=== PATIENT | female | born 1940 | race Caucasian/White ===

== ENCOUNTER 2016-09-08 12:36 | Inpatient (IN) ==
[2016-09-08 13:21] LABS: Basophils % 0.3 % (0.0-0.8); Eosinophils # 0.2 10*3/uL (0.0-0.87); Eosinophils % 1.4 % (0.00-10.9); Hemoglobin 12.6 GM/DL (12.0-16.0); Immature Granulocytes % 0.9 %; Lymphocytes # 2.9 10*3/uL (1.4-4.0); Lymphocytes % 26.7 % (21.3-54.2); Mean Corpuscular HGB Conc 32.3 GM/DL (32-36); Mean Corpuscular Hemoglobin 29 PG (27-34); Mean Corpuscular Volume 90.7 FL (87-102); Mean Platelet Volume 9.7 FL (9.6-12.0); Monocytes # 0.6 10*3/uL (0.11-0.8); Monocytes % 5.7 % (1.7-12.7); Neutrophils # 7.2 10*3/uL (1.4-7.4); Platelet Count 262 T/CUMM (130-400); Red Cell Distribution Width 14.2 % (9.3-17.3)
[2016-09-08] MEDS ORDERED: methylPREDNISolone SOD SUC 125 MG/2 ML VIAL IV STA (13:22)
[2016-09-08] MEDS ORDERED: ALBUTEROL 2.5 MG/3 ML NEB RESP TX STA (13:22)
--- NOTE | 2016-09-08 13:29 | Emergency Department Note ---
Hector Dasilva Manpreet, am scribing for, and in the presence of, Abhilash Pollack MD 13: 25. Jaki Dasilva James D, MD, personally performed the services described in this documentation, ascribed by Shivam Young in my presence, and it is both accurate and complete 327 . Arrival - Arrival Chief Complaint: Upper Respiratory Stated Complaint: diagnosed with bronchitis now cough up yellow [place] ED Nursing Triage Note: was seen on saturday and treated for bronchitis. has been taking meds and has gotten worse. has productive cough with yellow sputum production and some foamy secretions. Mode of Arrival: Wheelchair Limitations: No Limitations Source: Patient, Family, RN Notes Reviewed - History of Present Illness HPI Narrative: Pt is a 75 y/o female who presents to the ED with CC of cough with yellow mucus today. Pt was seen on 09/03/16 with the same sxs and treated for bronchitis. Pt is complaint with medications rx'ed on Saturday with no relief. Pt c/o SOB, wheezing, and a intermittent fever. Pt states her temperature reached a 100 F. Pt denies vomiting and is on home O2. Pt admits to smoking cigarettes but has not smoked in the past week. No other pains/complaints reported to ED. Onset (ago): day(s) Consistency: constant Severity: moderate Severity scale (1-10): 3 Allergies/Adverse Reactions: Allergies Allergy/AdvReac Type Severity Reaction Status Date / Time pregabalin [From Lyrica] Allergy Intermediate Abdominal Verified 06/23/16 13:49 Pain simvastatin [From Zocor] Allergy Unknown Unknown/Unable Verified 08/09/16 10:43 to obtain morphine Allergy ANAPHYLAXIS Verified 06/23/16 13:49 Home Medications: Home Medications Medication Instructions Recorded Confirmed Type Albuterol Sulfate [Ventolin HFA] 2 puff INH Q4H PRN 07/19/15 09/08/16 History Duloxetine HCl [Cymbalta] 60 mg PO BID 07/19/15 09/08/16 History Etodolac [Lodine] 400 mg PO DAILY 07/19/15 09/08/16 History Ezetimibe [Zetia] 10 mg PO DAILY 07/19/15 09/08/16 History Gabapentin Cap/Tab [Neurontin 2 tablet PO TID 07/19/15 09/08/16 History Cap/Tab] Lidocaine 5% Patch [Lidoderm 5% 1 patch TRANSDERM DAILY 07/19/15 09/08/16 History Patch] Pantoprazole Sodium 40 mg PO DAILY 07/19/15 09/08/16 History Simvastatin [Zocor] 40 mg PO PC SUPPER 07/19/15 09/08/16 History Aspirin EC Tab 81 mg PO DAILY tablet 09/01/15 09/08/16 Rx HYDROcodone/ACETAMIN 5-325 [[place] 1 tablet PO Q6H PRN #0 tablet 09/01/15 Rx 5-325] Metoprolol Tartrate Tab [Lopressor 25 mg PO BEDTIME #0 tablet 09/28/15 09/08/16 Rx Tab] Fluticasone/Salmeterol 250-50 1 puff INH BID 12/21/15 09/08/16 History [Advair 250-50] Furosemide Tab [Lasix Tab] 20 mg PO DAILY 12/21/15 09/08/16 History Potassium Chloride Cap/Tab [K Dur] 10 meq PO BID 12/21/15 09/08/16 History Albuterol Neb [Proventil Neb] 0.63 mg RESP TX TID 08/09/16 09/08/16 History Clorazepate [Tranxene] 7.5 mg PO TID PRN 08/09/16 09/08/16 History Docusate Sodium [Stool Softener] 100 mg PO DAILY 08/09/16 09/08/16 History Ergocalciferol (Vitamin D2) 2 capsule PO DAILY 08/09/16 09/08/16 History [Vitamin D2] Multivitamin (Centrum) [Centrum 1 tablet PO DAILY 08/09/16 09/08/16 History Tab] Naproxen Sodium [Aleve] 220 mg PO Q12HR PRN 08/09/16 09/08/16 History Benzonatate 200 mg PO TID PRN 09/08/16 09/08/16 History Cefdinir 300 mg PO Q12H 09/08/16 09/08/16 History Doxylamine/Phenylephrine [Poly 1 tablet PO Q6H PRN 09/08/16 09/08/16 History Hist Forte] methylPREDNISolone 4 mg PO DAILY 09/08/16 09/08/16 History [Methylprednisolone] Review of System - Review of System Constitutional: Present: chills, fever (Intermittent, but not today). Absent: diaphoresis Respiratory: Present: cough, respiratory distress, other (yellow mucus) Cardiovascular: Absent: chest pain, palpitations, dyspnea on exertion Gastrointestinal: Absent: abdominal pain, nausea Genitourinary female: Absent: dysuria Musculoskeletal: Absent: back pain Neurological: Absent: headache, weakness Medical,Surgical,& Family Hx - Medical History Cardio: History of: CHF, CAD, Hypertension, [place], Pacemaker Psychological: History of: Anxiety Disorders, Depression Neurology: History of: Peripheral Neuropathy No history of: Seizures HEENT: History of: Eye Problem (reading glasses), Dental Problems (dentures) Endocrine: History of: Dyslipidemia Respiratory: History of: COPD, Pulmonary Hypertension Renal: History of: Renal Problems (renal insufficiency secondary to diuresis) Genitourinary: No history of: Recurring Urinary Tract Infections Gastrointestinal: History of: Diverticulitis/ Diverticulosis, GERD, Liver Problems (liver enzymes elevated) Musculoskeletal: History of: Back/Neck Problems (chronic back pain and problems requiring back injections with dr carrera) Hematology: History of: Anemia No history of: Blood Transfusion Reaction Other: No history of: Anesthesia Reactions, Cancer, Eczema, HIV, MRSA - Surgical History Cardiac Surgeries: Sugical HX of: Cardiac Catheterization (august 2015 with stent placement), Internal Defibrillator Patient Denies: Femoral-Popliteal Bypass Graft, Cardiac Surgery, Carotid Endarterectomy, Vascular Access Devices Thoracic Surgeries: Patient denies;: Lobectomy Neurologic Surgeries: Patient denies: Neurologic Surgery HEENT Surgeries: Surgical HX of: Eye Surgery (cataract removed) Patient denies: Carotid Endarterectomy Abdominal Surgeries: Surgical HX of: Abdominal Surgery (colon surgery requiring colostomy and then re- anastomosis.), Appendectomy, Cholecystectomy, EGD Patient denies: Splenectomy Reproductive Surgeries: Patient denies;: Genitourinary Surgery, Gynecologic Surgery Orthopedic Surgeries: Surgical HX of;: Total Knee Replacement (right) - Family History Family History: Reports;: Family Cancer (breast ca mother), Family Diabetes ( brother), Family Hypertension (all siblings, daughter), Family Stroke (brother) Denies;: Family Anesthesia Reaction, Family Heart Disease - Social History Smoking Status: Current every day smoker Exam Vital Signs: Vital Signs Temperature 97.6 F 09/08/16 12:50 Pulse Rate 87 09/08/16 14:30 Respiratory Rate 20 09/08/16 14:30 Blood Pressure 131/75 09/08/16 14:30 O2 Sat by Pulse Oximetry 99 09/08/16 14:30 GENERAL: This is a well-nourished well-developed white female in no apparent distress. VITAL SIGNS: Reviewed HEENT: Head is atraumatic and normocephalic. Pupils are equal round react to light. Extraocular movements are intact. Oropharynx is benign with moist mucous membranes. NECK: Neck is soft and supple without tenderness. There are no masses. There is no lymphadenopathy. LUNGS: Expiratory wheezes on the right. Chest rises symmetrically. There is no chest wall tenderness. CV: Heart is regular rate and rhythm without murmurs rubs or gallops. ABDOMEN: Abdomen is soft, nontender to palpation. There are no abdominal abnormal masses palpated. There is no organomegaly. Bowel sounds are present and active. SKIN: Skin is warm and dry. No rash. EXTREMITIES: Patient has full range of motion without tenderness. There is no pedal edema. NEUROLOGIC: Awake alert and oriented 4. Cranial nerves II through XII are grossly intact. Motor is 5 over 5 in all extremities bilaterally. Course - Consultations Consultation #1: Discussed with Dr. Sin. Patient will be admitted to Dr. Moran service. Initial orders written for him. He will assume care upon patient's arrival to [place]. Time: 14:08 Results - Labs CBC & BMP: 09/08/16 13:10 09/08/16 13:10 Lab Results: I have reviewed the patients labs - EKG EKG results: interpreted by ERMD - Impressions EKG: Electronic ventricular pacemaker, rate 82, no further interpretation possible. - Diagnostic Findings Procedure: Chest x-ray: image reviewed by me (No infiltrates, no pleural effusions, AICD in position with leads in place.) Disposition Clinical Impression: Dyspnea, Cough, Coronary artery disease, History of congestive heart failure, COPD with acute exacerbation Case discussed with: patient Disposition: Still a Patient Condition: Stable Time of Disposition: 14:09
--- NOTE | 2016-09-08 13:32 | EKG Report ---
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
[2016-09-08 13:53] LABS: Alanine Aminotransferase 36 U/L (13-56); Alkaline Phosphatase 114 U/L (45-117); Aspartate Amino Transferase 24 U/L (0-37); Bilirubin,Total < 0.39 MG/DL (0.2-1.0); Blood Urea Nitrogen 28 MG/DL (7-18); Calcium 9.5 MG/DL (8.5-10.1); Glucose 110 MG/DL (74-106); Osmolality,Calculated 287.3 MOS/KG (273-304); Potassium 3.6 MMOL/L (3.5-5.1); Sodium 141 MMOL/L (136-145); Total Protein 7.9 G/DL (6.4-8.3)
--- NOTE | 2016-09-08 13:58 | XRay Report ---
XR chest 1V portable Indication: Cough, congestion Comparison: 05 January 2016 Findings: The heart and mediastinum are normal in size and configuration. Pacemaker device is unchanged in position. The pulmonary vascularity is normal in caliber. Lung volumes are increased with prominent bronchial markings. No lung infiltrates, effusions, pneumothorax or other abnormality is demonstrated. Impression: Chronic lung changes. No acute process or significant change. PROCEDURE INTERPRETED AT [facility] DEPARTMENT OF RADIOLOGY Final Report Signed by: Dr. Stan Hernandez
[2016-09-08] MEDS ORDERED: methylPREDNISolone SOD SUC 125 MG/2 ML VIAL ONE (14:00)
[2016-09-08] MEDS ORDERED: ACETAMINOPHEN 325 MG TABLET PO PRN (15:44)
[2016-09-08] MEDS ORDERED: ONDANSETRON 4 MG/2 ML VIAL IV PRN (15:44)
[2016-09-08] MEDS: SODIUM CHLORIDE 0.9% 1,000 ML IV SCH (16:18)
[2016-09-08] MEDS: LEVOFLOXACIN INJ 500 MG in PREMIX 1 EACH IV SCH (16:24)
--- NOTE | 2016-09-08 18:19 | Internal Med History&Physical ---
Assessment and Plan (1) COPD with acute exacerbation Status: Acute Assessment and plan: 75-year-old female admitted to acute care * Acute exacerbation of COPD. Patient is on home oxygen. She continues to smoke. She has failed outpatient treatment. She will be started on IV antibiotics, IV steroids and nebulizer treatments. She will be continued on oxygen * Coronary artery disease. Stable. Continue current treatment. * Hypertension. Blood pressure is stable * History of CHF. Will decrease her IV fluid * Chronic pain syndrome. She will be continued on current medications * History of depression. Continue her on current treatment * Discussed with patient and her daughter Current Visit: Yes (2) Coronary artery disease Status: Acute Current Visit: Yes (3) History of congestive heart failure Status: Acute Current Visit: Yes (4) Chronic pain syndrome Status: Chronic Current Visit: No (5) Essential hypertension Status: Chronic Current Visit: No History of Present Illness Chief complaint: Shortness of breath and intractable coughing History of present illness: Ms. Hopper is a 75 year old female with history of multiple medical problems including coronary artery disease, [place] and previous stenting, COPD, depression, hyperlipidemia, hypertension, pacemaker placement and chronic smoker. She has history of ischemic cardiomyopathy. She is [place] heart association class III heart failure with ejection fraction less than 35%. She had a deep defibrillator placed last year. She presented to the office with one-week history of shortness of breath and cough. She was seen in outpatient clinic. She was given steroid injection and antibiotics. She has not improved. She has been using Ventolin inhalers and nebulizer treatments at home. Patient continues to smoke. She lives alone at home. Her daughters live nearby. She denies any chest pain. She denies any nausea vomiting or diarrhea. She has history of chronic back pain and pain in both her knees. She recently stopped Plavix. Home Medications Medication Instructions Recorded Confirmed Type Albuterol Sulfate [Ventolin HFA] 2 puff INH Q4H PRN 07/19/15 09/08/16 History Duloxetine HCl [Cymbalta] 60 mg PO BID 07/19/15 09/08/16 History Etodolac [Lodine] 400 mg PO DAILY 07/19/15 09/08/16 History Ezetimibe [Zetia] 10 mg PO DAILY 07/19/15 09/08/16 History Gabapentin Cap/Tab [Neurontin 2 tablet PO TID 07/19/15 09/08/16 History Cap/Tab] Lidocaine 5% Patch [Lidoderm 5% 1 patch TRANSDERM DAILY 07/19/15 09/08/16 History Patch] Pantoprazole Sodium 40 mg PO DAILY 07/19/15 09/08/16 History Simvastatin [Zocor] 40 mg PO PC SUPPER 07/19/15 09/08/16 History Aspirin EC Tab 81 mg PO DAILY tablet 09/01/15 09/08/16 Rx HYDROcodone/ACETAMIN 5-325 [[place] 1 tablet PO Q6H PRN #0 tablet 09/01/15 Rx 5-325] Metoprolol Tartrate Tab [Lopressor 25 mg PO BEDTIME #0 tablet 09/28/15 09/08/16 Rx Tab] Fluticasone/Salmeterol 250-50 1 puff INH BID 12/21/15 09/08/16 History [Advair 250-50] Furosemide Tab [Lasix Tab] 20 mg PO DAILY 12/21/15 09/08/16 History Potassium Chloride Cap/Tab [K Dur] 10 meq PO BID 12/21/15 09/08/16 History Albuterol Neb [Proventil Neb] 0.63 mg RESP TX TID 08/09/16 09/08/16 History Clorazepate [Tranxene] 7.5 mg PO TID PRN 08/09/16 09/08/16 History Docusate Sodium [Stool Softener] 100 mg PO DAILY 08/09/16 09/08/16 History Ergocalciferol (Vitamin D2) 2 capsule PO DAILY 08/09/16 09/08/16 History [Vitamin D2] Multivitamin (Centrum) [Centrum 1 tablet PO DAILY 08/09/16 09/08/16 History Tab] Naproxen Sodium [Aleve] 220 mg PO Q12HR PRN 08/09/16 09/08/16 History Benzonatate 200 mg PO TID PRN 09/08/16 09/08/16 History Cefdinir 300 mg PO Q12H 09/08/16 09/08/16 History Doxylamine/Phenylephrine [Poly 1 tablet PO Q6H PRN 09/08/16 09/08/16 History Hist Forte] methylPREDNISolone 4 mg PO DAILY 09/08/16 09/08/16 History [Methylprednisolone] Allergies Allergy/AdvReac Type Severity Reaction Status Date / Time pregabalin [From Lyrica] Allergy Intermediate Abdominal Verified 06/23/16 13:49 Pain simvastatin [From Zocor] Allergy Unknown Unknown/Unable Verified 08/09/16 10:43 to obtain morphine Allergy ANAPHYLAXIS Verified 06/23/16 13:49 Medical,Surgical,& Family Hx - Medical History Cardio: History of: CHF, CAD, Hypertension, [place], Pacemaker Psychological: History of: Anxiety Disorders, Depression Neurology: History of: Peripheral Neuropathy No history of: Seizures HEENT: History of: Eye Problem (reading glasses), Dental Problems (dentures) Endocrine: History of: Dyslipidemia Respiratory: History of: COPD, Pulmonary Hypertension Renal: History of: Renal Problems (renal insufficiency secondary to diuresis) Genitourinary: No history of: Recurring Urinary Tract Infections Gastrointestinal: History of: Diverticulitis/ Diverticulosis, GERD, Liver Problems (liver enzymes elevated) Musculoskeletal: History of: Back/Neck Problems (chronic back pain and problems requiring back injections with dr carrera) Hematology: History of: Anemia No history of: Blood Transfusion Reaction Other: No history of: Anesthesia Reactions, Cancer, Eczema, HIV, MRSA - Surgical History Cardiac Surgeries: Sugical HX of: Cardiac Catheterization (august 2015 with stent placement), Internal Defibrillator Patient Denies: Femoral-Popliteal Bypass Graft, Cardiac Surgery, Carotid Endarterectomy, Vascular Access Devices Thoracic Surgeries: Patient denies;: Lobectomy Neurologic Surgeries: Patient denies: Neurologic Surgery HEENT Surgeries: Surgical HX of: Eye Surgery (cataract removed) Patient denies: Carotid Endarterectomy Abdominal Surgeries: Surgical HX of: Abdominal Surgery (colon surgery requiring colostomy and then re- anastomosis.), Appendectomy, Cholecystectomy, EGD Patient denies: Splenectomy Reproductive Surgeries: Patient denies;: Genitourinary Surgery, Gynecologic Surgery Orthopedic Surgeries: Surgical HX of;: Total Knee Replacement (right) - Family History Family History: Reports;: Family Cancer (breast ca mother), Family Diabetes ( brother), Family Hypertension (all siblings, daughter), Family Stroke (brother) Denies;: Family Anesthesia Reaction, Family Heart Disease - Social History Smoking Status: Current every day smoker Frequency of Alcohol Use: None Type of Drug Use: None Marital Status: Single Lives With:: Alone Functional capacity: uses cane/walker 12 point system: reviewed and no additional remarkable complaints except as stated (As mentioned in HPI) Exam - Constitutional Vitals: Period Temp Pulse Resp BP Sys/Quintanilla Pulse Ox Last 24 Hr 97.2 F-97.6 F 80-92 16-24 96-131/61-79 89-99 Exam: Examination: GENERAL: NAD. HEENT: PERRLA. EOMI. Mucous membranes are moist. NECK: Neck is supple. No JVD. No carotid bruit. No thyromegaly. CVS: Regular rate and rhythm. S1 and S2 are normal. Defibrillator present in the left chest wall RESPIRATORY: Decreased air entry bilaterally. Bilateral rhonchi ABDOMEN: Soft and nontender. Bowel sounds are present. No hepatosplenomegaly. EXT: No edema. Peripheral pulses are present. ASSEMBLER BRAZER: Patient is awake, alert and oriented to time place and person. Cranial nerves II through XII are grossly intact. Motor strength is 4/5 SKIN: Warm and dry. MSK: No obvious deformity. Results - Labs CBC & BMP: 09/08/16 13:10 09/08/16 13:10 Lab Results: I have reviewed the past 24 hour labs
[2016-09-08] MEDS ORDERED: PHENYLEPHRINE PO PRN (18:25)
[2016-09-08] MEDS ORDERED: NAPROXEN SODIUM 220 MG PO PRN (18:25)
[2016-09-08] MEDS ORDERED: DOXYLAMINE PO PRN (18:25)
[2016-09-08] MEDS: methylPREDNISolone SOD SUC 125 MG/2 ML VIAL IV SCH ×2 (18:40→23:51)
[2016-09-08] MEDS: ALBUTEROL 2.5 MG/3 ML NEB RESP TX SCH (19:59)
[2016-09-08] MEDS: METOPROLOL TARTRATE 25 MG TABLET PO SCH (20:51)
[2016-09-08] MEDS: GABAPENTIN 600 MG TABLET PO SCH (20:51)
[2016-09-08] MEDS: DOCUSATE SODIUM 100 MG CAPSULE PO SCH (20:51)
[2016-09-08] MEDS: POTASSIUM CHLORIDE 10 MEQ TABLET PO SCH (20:52)
[2016-09-08] MEDS: FLUTICASONE/SALMETEROL 250-50 DISKUS 14 DOSE INH SCH (20:52)
[2016-09-08] MEDS ORDERED: DULoxetine 30 MG CAPSULE PO SCH (21:00)
[2016-09-08] MEDS: CLORAZEPATE 7.5 MG TABLET PO PRN (22:03)
[2016-09-09] MEDS: ALBUTEROL 2.5 MG/3 ML NEB RESP TX SCH ×6 (00:13→20:01)
[2016-09-09] MEDS: methylPREDNISolone SOD SUC 125 MG/2 ML VIAL IV SCH ×3 (05:35→19:13)
[2016-09-09] MEDS ORDERED: DOCUSATE SODIUM 100 MG CAPSULE PO SCH (09:00)
[2016-09-09] MEDS ORDERED: PANTOPRAZOLE 40 MG TABLET PO SCH (09:00)
[2016-09-09] MEDS: POTASSIUM CHLORIDE 10 MEQ TABLET PO SCH ×2 (09:23→20:27)
[2016-09-09] MEDS: EZETIMIBE 10 MG TABLET PO SCH (09:23)
[2016-09-09] MEDS: MULTIVITAMIN (CENTRUM) TABLET PO SCH (09:23)
[2016-09-09] MEDS: CLORAZEPATE 7.5 MG TABLET PO PRN ×3 (09:23→20:27)
[2016-09-09] MEDS: ETODOLAC 400 MG TABLET PO SCH (09:24)
[2016-09-09] MEDS: ASPIRIN EC 81 MG TABLET PO SCH (09:24)
[2016-09-09] MEDS: GABAPENTIN 600 MG TABLET PO SCH ×3 (09:24→20:27)
[2016-09-09] MEDS: DOCUSATE SODIUM 100 MG CAPSULE PO SCH ×2 (09:24→20:27)
[2016-09-09] MEDS: BENZONATATE 100 MG CAPSULE PO PRN ×2 (09:24→19:18)
[2016-09-09] MEDS: LIDOCAINE 5% PATCH TRANSDERM SCH (09:25)
[2016-09-09] MEDS: CHOLECALCIFEROL 400 UNIT TABLET PO SCH (09:25)
[2016-09-09] MEDS: FUROSEMIDE 20 MG TABLET PO SCH (09:25)
[2016-09-09] MEDS: PANTOPRAZOLE 40 MG TABLET PO SCH (09:26)
--- NOTE | 2016-09-09 10:00 | Internal Med Progress Note ---
Assessment and Plan (1) COPD with acute exacerbation Status: Acute Assessment and plan: 75-year-old female admitted to acute care * Acute exacerbation of COPD. Doing better this morning. Continue IV antibiotics steroids and nebulizer * Coronary artery disease. Stable. * Hypertension. Blood pressure is stable * History of CHF. Will decrease her IV fluid * Chronic pain syndrome. She will be continued on current medications * History of depression. Stable * Dr. Moran to see her in the morning Current Visit: Yes (2) Coronary artery disease Status: Acute Current Visit: Yes (3) History of congestive heart failure Status: Acute Current Visit: Yes (4) Chronic pain syndrome Status: Chronic Current Visit: No (5) Essential hypertension Status: Chronic Current Visit: No Internal Medicine - PN: Subj Interval history: She is feeling better today. Her breathing has improved. She is coughing of phlegm. She denies any chest pain Exam (Progress Note) - Constitutional Vitals: Period Temp Pulse Resp BP Sys/Quintanilla Pulse Ox Last 24 Hr 97.0 F-98.8 F 67-110 16-24 96-133/59-85 89-99 Exam: Examination: GENERAL: NAD.roderick. CVS: Regular rate and rhythm. Defibrillator present in the left chest wall RESPIRATORY: Better air entry today. Few rhonchi ABDOMEN: Soft and nontender. EXT: No edema. Peripheral pulses are present. FINANCIAL SYSTEMS DIRECTOR: No change SKIN: Warm and dry. MSK: No obvious deformity. Results - Labs CBC & BMP: 09/08/16 13:10 09/08/16 13:10
[2016-09-09] MEDS: LEVOFLOXACIN INJ 500 MG in PREMIX 1 EACH IV SCH (10:09)
[2016-09-09] MEDS: FLUTICASONE/SALMETEROL 250-50 DISKUS 14 DOSE INH SCH ×2 (10:14→20:27)
[2016-09-09] MEDS: DULoxetine 30 MG CAPSULE PO SCH ×2 (11:44→20:29)
[2016-09-09] MEDS: SIMVASTATIN 40 MG TABLET PO SCH (19:12)
[2016-09-09] MEDS: METOPROLOL TARTRATE 25 MG TABLET PO SCH (20:28)
[2016-09-10] MEDS: methylPREDNISolone SOD SUC 125 MG/2 ML VIAL IV SCH ×4 (00:42→20:39)
[2016-09-10] MEDS: ALBUTEROL 2.5 MG/3 ML NEB RESP TX SCH ×7 (01:15→23:32)
[2016-09-10 06:47] LABS: Basophils % 0.1 % (0.0-0.8); Immature Granulocytes % 2.1 %; Immature Granulocytes Absolute 0.31 #; Lymphocytes # 0.7 10*3/uL (1.4-4.0); Lymphocytes % 4.7 % (21.3-54.2); Mean Corpuscular HGB Conc 32.8 GM/DL (32-36); Mean Corpuscular Hemoglobin 30 PG (27-34); Mean Corpuscular Volume 90.9 FL (87-102); Mean Platelet Volume 10.3 FL (9.6-12.0); Monocytes # 0.2 10*3/uL (0.11-0.8); Monocytes % 1.2 % (1.7-12.7); Neutrophils # 13.4 10*3/uL (1.4-7.4); Neutrophils % 91.9 % (38.7-73.9); Red Blood Count 3.52 MC/CUMM (3.8-5.5); Red Cell Distribution Width 14.6 % (9.3-17.3)
[2016-09-10 06:48] LABS: Hemoglobin 10.5 GM/DL (12.0-16.0); Platelet Count 194 T/CUMM (130-400); White Blood Count 14.6 T/CUMM (4-12)
[2016-09-10 06:55] LABS: Hypochromasia 1+; Lymphocytes 5 % (20-55); Ovalocytes Slight; Platelet Estimate Adequate; Segmented Neutrophils 95 % (50-85); Total Cells Counted 100
[2016-09-10 06:58] LABS: Calcium 8.9 MG/DL (8.5-10.1); Osmolality,Calculated 290.1 MOS/KG (273-304); Potassium 4.4 MMOL/L (3.5-5.1)
[2016-09-10] MEDS ORDERED: NAPROXEN 250 MG TABLET PO PRN (07:00)
[2016-09-10] MEDS: FLUTICASONE/SALMETEROL 250-50 DISKUS 14 DOSE INH SCH ×2 (08:29→20:59)
[2016-09-10] MEDS: MULTIVITAMIN (CENTRUM) TABLET PO SCH (08:30)
[2016-09-10] MEDS: POTASSIUM CHLORIDE 10 MEQ TABLET PO SCH ×2 (08:30→20:52)
[2016-09-10] MEDS: FUROSEMIDE 20 MG TABLET PO SCH (08:30)
[2016-09-10] MEDS: DOCUSATE SODIUM 100 MG CAPSULE PO SCH ×2 (08:30→20:52)
[2016-09-10] MEDS: ASPIRIN EC 81 MG TABLET PO SCH (08:30)
[2016-09-10] MEDS: LIDOCAINE 5% PATCH TRANSDERM SCH (08:31)
[2016-09-10] MEDS: ETODOLAC 400 MG TABLET PO SCH (08:33)
[2016-09-10] MEDS: PANTOPRAZOLE 40 MG TABLET PO SCH (08:34)
[2016-09-10] MEDS: CHOLECALCIFEROL 400 UNIT TABLET PO SCH (08:34)
[2016-09-10] MEDS: EZETIMIBE 10 MG TABLET PO SCH (08:34)
--- NOTE | 2016-09-10 09:08 | Family Practice Progress Note ---
Family Practice - PN: Subj Interval history: Patient seen this morning. She is still coughing up small amount of yellow secretions. Some mild shortness of breath. She is a chronic smoker and continues. We discussed this for quite some length. Her white count of 14.6 but she is afebrile at this time blood cultures one day have no growth. We are going to continue to give her steroids, but decrease the dose to every 8 hours. We will continue on Levaquin at this time. She does continue to have a few loose rhonchi but the wheezing is some better. Is also continuing on her albuterol DuoNeb treatments. Monitor closely if she does not turn around will consider a pulmonary consult Exam (Progress Note) - Constitutional Vitals: Period Temp Pulse Resp BP Sys/Quintanilla Pulse Ox Last 24 Hr 97.4 F-98.5 F 63-88 16-22 108-132/52-97 91-99 Exam: States she feels "some better". Still having a little shortness of breath is on 2 L O2 nasal cannula. HEENT pupils equal reactive to light neck is supple trachea midline Cardiovascular no gallop or rub 1/6 systolic ejection murmur she denies any chest pain Lungs few coarse rhonchi but no wheezing improved some. Is not tachypneic at present Abdomen soft nondistended admits passing gas Extremities no clubbing cyanosis or edema Results - Labs CBC & BMP: 09/10/16 05:54 09/10/16 05:54 Assessment and Plan (1) COPD with acute exacerbation Status: Acute Assessment and plan: 09/10/2016: We will continue current therapy including antibiotics. The patient has multiple comorbidities Current Visit: Yes (2) Coronary artery disease Status: Acute Assessment and plan: 09/10/2016: Not have any mackenzie chest pain at this time. She does have significant peripheral vascular disease in addition to coronary disease as well. Discussed with her quite frankly about her smoking Current Visit: Yes (3) Dyspnea Status: Acute Assessment and plan: 09/10/2016: As above we will can give her the duo nebs and continue Solu-Medrol at a lower dose. Current Visit: Yes (4) Tobacco abuse Status: Chronic Assessment and plan: 09/10/2016 long discussion concerning her smoking. She has a difficult time understanding that is bad for her Current Visit: No
[2016-09-10] MEDS: CLORAZEPATE 7.5 MG TABLET PO PRN ×2 (09:29→20:54)
[2016-09-10] MEDS: GABAPENTIN 600 MG TABLET PO SCH ×3 (09:29→20:52)
[2016-09-10] MEDS: ENOXAPARIN 40 MG/0.4 ML SYRINGE SUBCUT SCH (09:29)
[2016-09-10] MEDS: LEVOFLOXACIN INJ 250 MG in PREMIX 1 EACH IV SCH (09:30)
--- NOTE | 2016-09-10 10:27 | Physician Query Form ---
CLICK EDIT DOCUMENT TO SELECT QUERY ANSWER --> OK --> SIGN Jerica Bonilla RN, CCDS Certified Clinical Mattress Filling Machine Tender W) [phone] (f) [phone] [email or web address] PROVIDERS: Make your selection(s) from the choices in EACH section by typing an "x" and enter comments in the comment section. Please use your independent medical judgment in providing your response. This request does not imply that any particular answer is desired or expected. CLINICAL INDICATORS: (Providers should not edit this section) The medical record indicates that the patient was admitted with COPD exacerbation, "is on home O2', the patient was admitted and placed on 2 liters per NC. Based on the above, could you clarify the appropriate diagnosis, if significant , that supports the above abnormalities and additional evaluation, monitoring, and/or treatment rendered: ( ) Patient is being monitored or treated for chronic respiratory failure ( ) Patient is not being monitored or treated for chronic respiratory failure ( ) Other, please specify: ( x) Clinically unable to determine COMMENTS: PLEASE ALSO DOCUMENT RESPONSE IN PROGRESS NOTES AND/OR DISCHARGE SUMMARY Use of terms such as suspected, likely, or probable (associated with a specific diagnosis that is being evaluated, monitored, or treated as if it exists) are acceptable and can be restated in the discharge summary if not ruled out. MTDD
[2016-09-10] MEDS: DULoxetine 30 MG CAPSULE PO SCH ×2 (13:02→20:52)
[2016-09-10] MEDS: SODIUM CHLORIDE 0.9% 1,000 ML IV SCH (13:06)
[2016-09-10] MEDS: SIMVASTATIN 40 MG TABLET PO SCH (17:08)
[2016-09-10] MEDS ORDERED: LACTULOSE 20 GM/30 ML UDCUP PO ONE (20:31)
[2016-09-10] MEDS: METOPROLOL TARTRATE 25 MG TABLET PO SCH (20:57)
[2016-09-11] MEDS: ALBUTEROL 2.5 MG/3 ML NEB RESP TX SCH ×7 (03:44→23:28)
[2016-09-11] MEDS: methylPREDNISolone SOD SUC 125 MG/2 ML VIAL IV SCH ×2 (04:58→16:14)
--- NOTE | 2016-09-11 08:32 | XRay Report ---
Exam: XR chest 2V Indication: Shortness of breath Comparison study: 09/06/2016 radiograph Findings: The heart, mediastinum and bony structures are stable from prior. Left chest pacemaker-defibrillator device and wire leads appear in stable positions. Diffuse interstitial prominence again noted, most compatible with chronic scarring changes. No definite focal consolidation is identified. There is no pneumothorax or pleural effusion identified. Impression: Similar chronic changes. Otherwise, no active disease or significant change. PROCEDURE INTERPRETED AT [facility] DEPARTMENT OF RADIOLOGY Final Report Signed by: Alessio Cotton
[2016-09-11] MEDS: POTASSIUM CHLORIDE 10 MEQ TABLET PO SCH ×2 (09:15→21:39)
[2016-09-11] MEDS: ENOXAPARIN 40 MG/0.4 ML SYRINGE SUBCUT SCH (09:15)
[2016-09-11] MEDS: SODIUM CHLORIDE 0.9% 1,000 ML IV SCH (09:15)
[2016-09-11] MEDS: CHOLECALCIFEROL 400 UNIT TABLET PO SCH (09:16)
[2016-09-11] MEDS: MULTIVITAMIN (CENTRUM) TABLET PO SCH (09:16)
[2016-09-11] MEDS: DOCUSATE SODIUM 100 MG CAPSULE PO SCH ×2 (09:16→21:39)
[2016-09-11] MEDS: GABAPENTIN 600 MG TABLET PO SCH ×3 (09:16→21:38)
[2016-09-11] MEDS: EZETIMIBE 10 MG TABLET PO SCH (09:16)
[2016-09-11] MEDS: PANTOPRAZOLE 40 MG TABLET PO SCH (09:17)
[2016-09-11] MEDS: FUROSEMIDE 20 MG TABLET PO SCH (09:17)
[2016-09-11] MEDS: ASPIRIN EC 81 MG TABLET PO SCH (09:17)
[2016-09-11] MEDS: ETODOLAC 400 MG TABLET PO SCH (09:17)
[2016-09-11] MEDS: LIDOCAINE 5% PATCH TRANSDERM SCH (09:18)
[2016-09-11] MEDS: LEVOFLOXACIN INJ 250 MG in PREMIX 1 EACH IV SCH (09:18)
[2016-09-11] MEDS: FLUTICASONE/SALMETEROL 250-50 DISKUS 14 DOSE INH SCH ×2 (09:22→21:40)
[2016-09-11] MEDS: CLORAZEPATE 7.5 MG TABLET PO PRN ×3 (09:32→21:38)
--- NOTE | 2016-09-11 10:19 | Physician Query Form ---
CLICK EDIT DOCUMENT TO SELECT QUERY ANSWER --> OK --> SIGN Jeriac Bonilla RN, CCDS Certified Clinical Junk Removal Specialist W) [phone] (f) [phone] [email or web address] Make your selection(s) from the choices in EACH section by typing an "x" and enter comments in the comment section. Please use your independent medical judgment in providing your response. This request does not imply that any particular answer is desired or expected. CLINICAL INDICATORS: (Providers should not edit this section) The medical record indicates that the patient was admitted with COPD exacerbation, history of CHF, " [place] heart association class III heart failure with ejection fraction less than 35%" and the patient is on a low dose of Lasix (PO). Please provide further specificity regarding CHF. TYPE: ( ) Systolic (HFrEF - heart failure with reduced systolic function/EF) ( ) Diastolic (HFpEF - heart failure with preserved systolic function/EF) ( ) Combined Systolic/Diastolic ( x) Other, please specify: ( ) Clinically unable to determine ( ) The patient does NOT have CHF COMMENTS: Unspecified CHF I50.9 PLEASE ALSO DOCUMENT RESPONSE IN PROGRESS NOTES AND/OR DISCHARGE SUMMARY Use of terms such as suspected, likely, or probable (associated with a specific diagnosis that is being evaluated, monitored, or treated as if it exists) are acceptable and can be restated in the discharge summary if not ruled out. MTDD
[2016-09-11] MEDS: DULoxetine 30 MG CAPSULE PO SCH ×2 (10:52→21:40)
[2016-09-11] MEDS: SIMVASTATIN 40 MG TABLET PO SCH (18:05)
[2016-09-11] MEDS: METOPROLOL TARTRATE 25 MG TABLET PO SCH (21:39)
[2016-09-12] MEDS: ALBUTEROL 2.5 MG/3 ML NEB RESP TX SCH ×2 (03:21→06:43)
[2016-09-12] MEDS: SODIUM CHLORIDE 0.9% 1,000 ML IV SCH (04:59)
[2016-09-12] MEDS: methylPREDNISolone SOD SUC 125 MG/2 ML VIAL IV SCH (05:00)
[2016-09-12 06:13] LABS: Basophils % 0.1 % (0.0-0.8); Hematocrit 31.2 VOL% (35.7-47.0); Hemoglobin 9.9 GM/DL (12.0-16.0); Immature Granulocytes % 3.9 %; Immature Granulocytes Absolute 0.39 #; Lymphocytes # 1.7 10*3/uL (1.4-4.0); Lymphocytes % 17.5 % (21.3-54.2); Mean Corpuscular HGB Conc 31.7 GM/DL (32-36); Mean Corpuscular Hemoglobin 30 PG (27-34); Mean Corpuscular Volume 94.5 FL (87-102); Mean Platelet Volume 11.2 FL (9.6-12.0); Monocytes # 0.6 10*3/uL (0.11-0.8); Monocytes % 6.5 % (1.7-12.7); Neutrophils # 7.1 10*3/uL (1.4-7.4); Platelet Count 134 T/CUMM (130-400); White Blood Count 9.9 T/CUMM (4-12)
[2016-09-12 06:59] LABS: Hypochromasia 1+; Lymphocytes 19 % (20-55); Metamyelocytes 1 %; Microcytosis 1+; Myelocytes 1 %; Ovalocytes Few; Segmented Neutrophils 75 % (50-85); Total Cells Counted 100
[2016-09-12 07:00] LABS: Platelet Estimate Adequate
[2016-09-12 08:00] VITALS: BP 158/86
--- NOTE | 2016-09-12 08:50 | Family Practice Progress Note ---
Family Practice - PN: Subj Interval history: Patient seen this morning. mild shortness of breath, but improved. Remains with a few loose rhonchi but now starting to have a productive and looser cough. No fever at this time. Is sitting up in bed and much more active now. Is able to ambulate to the bathroom without difficulty and or assistance. Voiding well at present. We did decrease her steroids Psalm and we will continue to taper these hopefully DC tomorrow Exam (Progress Note) - Constitutional Vitals: Period Temp Pulse Resp BP Sys/Quintanilla Pulse Ox Last 24 Hr 96.8 F-98.0 F 66-95 18-22 124-158/61-86 93-99 Exam: Continuing to improve. Still having a little shortness of breath is on 2 L O2 nasal cannula. HEENT pupils equal reactive to light neck is supple trachea midline Cardiovascular no gallop or rub 1/6 systolic ejection murmur she denies any chest pain Lungs few coarse rhonchi but no wheezing improved some. Abdomen soft nondistended admits passing gas Extremities no clubbing cyanosis or edema Results - Labs CBC & BMP: 09/12/16 05:39 09/10/16 05:54 Assessment and Plan (1) COPD with acute exacerbation Status: Acute Assessment and plan: 09/10/2016: We will continue current therapy including antibiotics. The patient has multiple comorbidities Current Visit: Yes (2) Coronary artery disease Status: Acute Assessment and plan: 09/10/2016: Not have any mackenzie chest pain at this time. She does have significant peripheral vascular disease in addition to coronary disease as well. Discussed with her quite frankly about her smoking Current Visit: Yes (3) Dyspnea Status: Acute Assessment and plan: 09/10/2016: As above we will can give her the duo nebs and continue Solu-Medrol at a lower dose. Current Visit: Yes (4) Tobacco abuse Status: Chronic Assessment and plan: 09/10/2016 long discussion concerning her smoking. She has a difficult time understanding that is bad for her Current Visit: No (5) Leukocytosis Status: Acute Current Visit: Yes
--- NOTE | 2016-09-12 08:55 | Discharge Summary ---
Hospital Course - Hospital Course Hospital Course: Seen today. She has significantly improved since her admission. Denies any chest pain. Shortness of breath is almost completely diminished and she does not require oxygen at present. No acute distress otherwise. Plan today is to discharge her. Came in with shortness of breath and bronchitis. She had evidence of COPD with placed on appropriate antibiotics and beta agonist as well as some steroids and she did slowly turn around. She has had this in the past as well as a history of pulmonary edema but chest x-ray did not show evidence of heart failure at this time. No chest pain per patient throughout hospitalization. She did gain strength and will going to discharge her today. She is a chronic lifetime smoker and I told her she has got to stop and she did state that she would. Diagnosis - Discharge Diagnosis (1) COPD with acute exacerbation Status: Acute (2) Coronary artery disease Status: Acute (3) Dyspnea Status: Acute (4) Tobacco abuse Status: Chronic (5) Leukocytosis Status: Acute Discharge Plan - Discharge Data Condition at Discharge: Stable Discharge Diet: advance to your usual diet Activity: resume usual activities as tolerated Hygiene: no restrictions Weight Bearing at Discharge: weight bear as tolerated Driving: no restrictions Contact your physician if you experience:: fever over 101, Shortness of breath - Discharge Medications Continue Lidocaine 5% Patch [Lidoderm 5% Patch] 1 patch TRANSDERM DAILY Albuterol Sulfate [Ventolin HFA] 2 puff INH Q4H PRN PRN Reason: Shortness Of Breath/Wheezing Pantoprazole Sodium 40 mg PO DAILY Simvastatin [Zocor] 40 mg PO PC SUPPER Ezetimibe [Zetia] 10 mg PO DAILY Etodolac [Lodine] 400 mg PO DAILY Duloxetine HCl [Cymbalta] 60 mg PO BID Aspirin EC Tab 81 mg PO DAILY tablet HYDROcodone/ACETAMIN 5-325 [[place] 5-325] 1 tablet PO Q6H PRN #0 tablet PRN Reason: Pain Moderate (4-7) Fluticasone/Salmeterol 250-50 [Advair 250-50] 1 puff INH BID Potassium Chloride Cap/Tab [K Dur] 10 meq PO BID Furosemide Tab [Lasix Tab] 20 mg PO DAILY Ergocalciferol (Vitamin D2) [Vitamin D2] 2 capsule PO DAILY Doxylamine/Phenylephrine [Poly Hist Forte] 1 tablet PO Q6H PRN PRN Reason: Cough methylPREDNISolone [Methylprednisolone] 4 mg PO DAILY Benzonatate 200 mg PO TID PRN PRN Reason: Cough Multivitamin (Centrum) [Centrum Tab] 1 tablet PO DAILY Naproxen Sodium [Aleve] 220 mg PO Q12HR PRN PRN Reason: Pain Docusate Sodium [Stool Softener] 100 mg PO DAILY Albuterol Neb [Proventil Neb] 0.63 mg RESP TX TID Clorazepate [Tranxene] 7.5 mg PO TID PRN PRN Reason: Anxiety Discontinued Cefdinir 300 mg PO Q12H No Action Gabapentin Cap/Tab [Neurontin Cap/Tab] 2 tablet PO TID Metoprolol Tartrate Tab [Lopressor Tab] 25 mg PO BEDTIME #0 tablet - Follow Up or Referral - Forms/Instructions Exam - Constitutional Vitals: Period Temp Pulse Resp BP Sys/Quintanilla Pulse Ox Last 24 Hr 96.8 F-98.0 F 66-95 18-22 124-158/61-86 93-99 Discharge Results Procedures and tests throughout hospitalization: Pending Orders 09/08/16 13:10 Blood Culture Stat Labs on day of discharge: Labs from last 24 hours 09/12/16 05:39 WBC 9.9 D RBC 3.30 L Hgb 9.9 L Hct 31.2 L MCV 94.5 MCH 30 MCHC 31.7 L RDW 15.0 Plt Count 134 D MPV 11.2 Neut % (Auto) 72.0 Lymph % (Auto) 17.5 L Bucks % (Auto) 6.5 Eos % (Auto) 0.0 Baso % (Auto) 0.1 Neut # (Auto) 7.1 Lymph # (Auto) 1.7 Bucks # (Auto) 0.6 Eos # (Auto) 0.0 Baso # (Auto) 0.0 Total Counted 100 Immature Gran % 3.9 Nucleated RBC % 0.0 Immature Gran # 0.39 Segmented Neutrophils 75 Lymphocytes 19 L Monocytes 4 Metamyelocytes 1 Myelocytes 1 Nucleated RBCs # 0.00 Platelet Estimate Adequate Hypochromasia 1+ Microcytosis 1+ Ovalocytes Few Preliminary micro results at discharge 09/08/16 13:10 Blood Culture - Preliminary Blood No growth at 3 days 09/08/16 13:10 Blood Culture - Preliminary Blood No growth at 3 days DS: Provider Date of admission: 09/08/16 14:09 Primary care physician: Matthieu Moran DO Attending physician on admission: Matthieu Moran DO Consults: 09/08/16 15:44 Consult to Case Mgmt/Social Srvs [CONS] Routine Reason for Case Mgmt/Social Srvs: Discharge Planning 09/11/16 11:34 Consult to Dietitian [CONS] Routine Reason for Dietitian: Diet Instruction Consult Comment: PATIENT WANTS INSTRUCTION ON CARDIAC DIET Discharging clinician: Matthieu Moran DO
[2016-09-12] MEDS ORDERED: LEVOFLOXACIN INJ 500 MG in PREMIX 1 EACH IV SCH (09:00)
[2016-09-12] MEDS: ENOXAPARIN 40 MG/0.4 ML SYRINGE SUBCUT SCH (09:02)
[2016-09-12] MEDS: FLUTICASONE/SALMETEROL 250-50 DISKUS 14 DOSE INH SCH (09:02)
[2016-09-12] MEDS: MULTIVITAMIN (CENTRUM) TABLET PO SCH (09:02)
[2016-09-12] MEDS: DOCUSATE SODIUM 100 MG CAPSULE PO SCH (09:02)
[2016-09-12] MEDS: FUROSEMIDE 20 MG TABLET PO SCH (09:03)
[2016-09-12] MEDS: ETODOLAC 400 MG TABLET PO SCH (09:03)
[2016-09-12] MEDS: CLORAZEPATE 7.5 MG TABLET PO PRN (09:03)
[2016-09-12] MEDS: EZETIMIBE 10 MG TABLET PO SCH (09:03)
[2016-09-12] MEDS: ASPIRIN EC 81 MG TABLET PO SCH (09:03)
[2016-09-12] MEDS: GABAPENTIN 600 MG TABLET PO SCH (09:03)
[2016-09-12] MEDS: POTASSIUM CHLORIDE 10 MEQ TABLET PO SCH (09:03)
[2016-09-12] MEDS: CHOLECALCIFEROL 400 UNIT TABLET PO SCH (09:03)
[2016-09-12] MEDS: LIDOCAINE 5% PATCH TRANSDERM SCH (09:04)
[2016-09-12] MEDS: PANTOPRAZOLE 40 MG TABLET PO SCH (09:04)
== END 2016-09-12 12:20 | disposition home or self-care (01) | DRG 192 ==
LOC: N.ED 12:36 → N.EDINP 14:09 → N.2E 15:28
PROVIDERS: ADMIT Family Medicine; ATTEND Family Medicine

== ENCOUNTER 2017-02-06 15:02 | Inpatient (IN) ==
[2017-02-06] MEDS ORDERED: ASPIRIN 325 MG TABLET PO STA (15:56)
[2017-02-06] MEDS ORDERED: ALBUTEROL 2.5 MG/3 ML NEB RESP TX STA (16:03)
[2017-02-06] MEDS ORDERED: methylPREDNISolone SOD SUC 125 MG/2 ML VIAL IV STA (16:03)
[2017-02-06] MEDS ORDERED: LEVOFLOXACIN INJ 500 MG in PREMIX 1 EACH IV STA (16:03)
[2017-02-06] MEDS ORDERED: SODIUM CHLORIDE 0.9% 1,000 ML IV STA (16:10)
[2017-02-06] MEDS ORDERED: ALBUTEROL 2.5 MG/3 ML NEB RESP TX ONE (16:21)
[2017-02-06 16:30] LABS: Basophils % 0.3 % (0.0-0.8); Eosinophils # 0.1 10*3/uL (0.0-0.87); Eosinophils % 0.6 % (0.00-10.9); Hemoglobin 11.9 GM/DL (12.0-16.0); Immature Granulocytes % 0.4 %; Immature Granulocytes Absolute 0.05 #; Lymphocytes # 1.4 10*3/uL (1.4-4.0); Lymphocytes % 11.7 % (21.3-54.2); Mean Corpuscular HGB Conc 32.2 GM/DL (32-36); Mean Corpuscular Hemoglobin 30 PG (27-34); Mean Corpuscular Volume 91.8 FL (87-102); Mean Platelet Volume 10.9 FL (9.6-12.0); Monocytes # 0.9 10*3/uL (0.11-0.8); Monocytes % 7.5 % (1.7-12.7); Neutrophils # 9.3 10*3/uL (1.4-7.4); Neutrophils % 79.5 % (38.7-73.9); Platelet Count 139 T/CUMM (130-400); Red Blood Count 4.03 MC/CUMM (3.8-5.5); Red Cell Distribution Width 14.5 % (9.3-17.3); White Blood Count 11.7 T/CUMM (4-12)
[2017-02-06 16:52] LABS: Alanine Aminotransferase 15 U/L (13-56); Albumin 3.3 G/DL (3.4-5.0); Alkaline Phosphatase 118 U/L (45-117); Aspartate Amino Transferase 18 U/L (0-37); Blood Urea Nitrogen 15 MG/DL (7-18); Calcium 8.9 MG/DL (8.5-10.1); Glucose 100 MG/DL (74-106); Osmolality,Calculated 277.5 MOS/KG (273-304); PT Patient Result 10.5 SECS; Partial Thromboplastin Time 28.7 SECS (0-40); Potassium 3.6 MMOL/L (3.5-5.1); Sodium 139 MMOL/L (136-145); Total Protein 7.3 G/DL (6.4-8.3); Troponin I Only < 0.015 NG/ML (0.00-0.045)
[2017-02-06] MEDS ORDERED: LEVOFLOXACIN INJ 100 ML IV ONE (17:15)
[2017-02-06] MEDS ORDERED: methylPREDNISolone SOD SUC 125 MG/2 ML VIAL ONE (17:15)
[2017-02-06] MEDS ORDERED: ASPIRIN 325 MG TABLET ONE (17:15)
[2017-02-06 17:26] LABS: Band Neutrophils 3 % (0-10); Lymphocytes 13 % (20-55); Segmented Neutrophils 84 % (50-85); Total Cells Counted 100
[2017-02-06 17:27] LABS: Anisocytosis 1+; Hypochromasia 1+; Ovalocytes Few; Platelet Estimate Adequate; Polychromasia Slight
[2017-02-06 18:14] LABS: Lactic Acid 2.1 MMOL/L (0.4-2.0)
[2017-02-06] MEDS ORDERED: ALBUTEROL 2.5 MG/3 ML NEB RESP TX PRN (22:00)
[2017-02-06] MEDS ORDERED: ONDANSETRON 4 MG/2 ML VIAL IV PRN (22:00)
[2017-02-06] MEDS ORDERED: methylPREDNISolone SOD SUC 40 MG/1 ML VIAL IV SCH (22:00)
[2017-02-06] MEDS ORDERED: ACETAMINOPHEN 325 MG TABLET PO PRN (22:00)
[2017-02-06] MEDS ORDERED: CLORAZEPATE 7.5 MG TABLET PO PRN (22:14)
[2017-02-06] MEDS ORDERED: ENOXAPARIN 30 MG/0.3 ML SYRINGE SUBCUT SCH (23:00)
[2017-02-06] MEDS: DOCUSATE SODIUM 100 MG CAPSULE PO SCH (23:45)
[2017-02-06] MEDS: ENOXAPARIN 40 MG/0.4 ML SYRINGE SUBCUT SCH (23:46)
[2017-02-06] MEDS: SODIUM CHLORIDE 0.9% 1,000 ML IV SCH (23:46)
[2017-02-06] MEDS: methylPREDNISolone SOD SUC 40 MG/1 ML VIAL IV SCH (23:46)
[2017-02-07 06:08] LABS: Basophils % 0.1 % (0.0-0.8); Immature Granulocytes % 0.5 %; Immature Granulocytes Absolute 0.04 #; Lymphocytes # 0.7 10*3/uL (1.4-4.0); Mean Corpuscular HGB Conc 31.9 GM/DL (32-36); Mean Corpuscular Hemoglobin 29 PG (27-34); Mean Corpuscular Volume 91.7 FL (87-102); Mean Platelet Volume 11.2 FL (9.6-12.0); Monocytes # 0.1 10*3/uL (0.11-0.8); Monocytes % 1.1 % (1.7-12.7); Neutrophils # 6.5 10*3/uL (1.4-7.4); Neutrophils % 88.3 % (38.7-73.9); Platelet Count 124 T/CUMM (130-400); Red Blood Count 3.38 MC/CUMM (3.8-5.5)
[2017-02-07 06:12] LABS: Hemoglobin 9.9 GM/DL (12.0-16.0); White Blood Count 7.3 T/CUMM (4-12)
[2017-02-07 06:26] LABS: Calcium 8.5 MG/DL (8.5-10.1); Osmolality,Calculated 284.3 MOS/KG (273-304); Potassium 3.7 MMOL/L (3.5-5.1)
[2017-02-07 06:31] LABS: Band Neutrophils 6 % (0-10); Lymphocytes 10 % (20-55); Platelet Estimate Normal; Segmented Neutrophils 83 % (50-85); Total Cells Counted 100
[2017-02-07 06:32] LABS: Giant Platelets Few; Hypochromasia 1+; Ovalocytes Slight
[2017-02-07] MEDS: DOCUSATE SODIUM 100 MG CAPSULE PO SCH ×2 (08:57→21:10)
[2017-02-07] MEDS: PANTOPRAZOLE 40 MG TABLET PO SCH (08:57)
[2017-02-07] MEDS ORDERED: NON-FORMULARY MEDICATION (Albuterol Sulfate [Ventolin Hfa] 2 PUFF) INH PRN (09:52)
[2017-02-07] MEDS: FUROSEMIDE 20 MG TABLET PO SCH (11:14)
[2017-02-07] MEDS: methylPREDNISolone SOD SUC 40 MG/1 ML VIAL IV SCH ×2 (11:20→23:13)
[2017-02-07] MEDS: ALBUTEROL 2.5 MG/3 ML NEB RESP TX SCH ×2 (14:40→20:01)
[2017-02-07] MEDS: SODIUM CHLORIDE 0.9% 1,000 ML IV SCH (14:57)
[2017-02-07] MEDS ORDERED: LEVOFLOXACIN INJ 500 MG in PREMIX 1 EACH IV SCH (15:00)
[2017-02-07] MEDS ORDERED: ERGOCALCIFEROL PO SCH (15:30)
[2017-02-07] MEDS ORDERED: MULTIVITAMIN PO SCH (15:30)
[2017-02-07] MEDS: ASPIRIN EC 81 MG TABLET PO SCH (15:49)
[2017-02-07] MEDS: ROSUVASTATIN 20 MG TABLET PO SCH (16:11)
[2017-02-07] MEDS: FLUTICASONE/SALMETEROL 250-50 DISKUS 14 DOSE INH SCH ×2 (16:11→21:10)
[2017-02-07] MEDS: METOPROLOL SUCCINATE XL 25 MG TABLET PO SCH (16:11)
[2017-02-07] MEDS: ETODOLAC 400 MG TABLET PO SCH (16:11)
[2017-02-07] MEDS: VALSARTAN 80 MG TABLET PO SCH (16:11)
[2017-02-07] MEDS: POTASSIUM CHLORIDE 20 MEQ TABLET PO SCH (16:11)
[2017-02-07] MEDS: LIDOCAINE 5% PATCH TRANSDERM SCH (16:12)
[2017-02-07] MEDS: GABAPENTIN 600 MG TABLET PO SCH ×2 (16:23→21:10)
[2017-02-07] MEDS: IPRATROPIUM 500 MCG/2.5 ML NEB RESP TX SCH (20:01)
[2017-02-07] MEDS: DULoxetine 30 MG CAPSULE PO SCH (21:10)
[2017-02-07] MEDS: ENOXAPARIN 40 MG/0.4 ML SYRINGE SUBCUT SCH (23:13)
[2017-02-08] MEDS: SODIUM CHLORIDE 0.9% 1,000 ML IV SCH (06:27)
[2017-02-08] MEDS: ALBUTEROL 2.5 MG/3 ML NEB RESP TX SCH (07:05)
[2017-02-08] MEDS: IPRATROPIUM 500 MCG/2.5 ML NEB RESP TX SCH ×2 (07:05→11:10)
[2017-02-08] MEDS: POTASSIUM CHLORIDE 20 MEQ TABLET PO SCH (09:03)
[2017-02-08] MEDS: GABAPENTIN 600 MG TABLET PO SCH (09:03)
[2017-02-08] MEDS: VALSARTAN 80 MG TABLET PO SCH (09:03)
[2017-02-08] MEDS: ASPIRIN EC 81 MG TABLET PO SCH (09:03)
[2017-02-08] MEDS: METOPROLOL SUCCINATE XL 25 MG TABLET PO SCH (09:03)
[2017-02-08] MEDS: PANTOPRAZOLE 40 MG TABLET PO SCH (09:03)
[2017-02-08] MEDS: DULoxetine 30 MG CAPSULE PO SCH (09:03)
[2017-02-08] MEDS: ROSUVASTATIN 20 MG TABLET PO SCH (09:03)
[2017-02-08] MEDS: FUROSEMIDE 20 MG TABLET PO SCH (09:03)
[2017-02-08] MEDS: DOCUSATE SODIUM 100 MG CAPSULE PO SCH (09:03)
[2017-02-08] MEDS: FLUTICASONE/SALMETEROL 250-50 DISKUS 14 DOSE INH SCH (09:07)
[2017-02-08] MEDS: LIDOCAINE 5% PATCH TRANSDERM SCH (09:10)
[2017-02-08] MEDS: ETODOLAC 400 MG TABLET PO SCH (09:10)
[2017-02-08] MEDS: methylPREDNISolone SOD SUC 40 MG/1 ML VIAL IV SCH (10:31)
[2017-02-08 12:26] VITALS: BP 141/75
== END 2017-02-08 14:31 | disposition home health service (06) | DRG 190 ==
LOC: N.ED 15:02 → N.EDINP 16:12 → N.4E 20:19
PROVIDERS: ADMIT Family Medicine; ATTEND Family Medicine

== ENCOUNTER 2017-04-02 05:47 | Inpatient (IN) ==
[2017-04-02] MEDS ORDERED: VANCOMYCIN INJ 1,000 MG in SODIUM CHLORIDE 0.9% 250 ML IV ONE (06:00)
[2017-04-02] MEDS ORDERED: ceFAZolin 1,000 MG in SYRINGE 1 EACH IV ONE (06:00)
[2017-04-02] MEDS ORDERED: ALBUTEROL 2.5 MG/3 ML NEB RESP TX ONE (06:57)
[2017-04-02] MEDS ORDERED: PANTOPRAZOLE 40 MG TABLET PO ONE ×2 (06:57→08:07)
[2017-04-02] MEDS ORDERED: LACTATED RINGERS 1,000 ML IV SCH (07:00)
[2017-04-02] MEDS ORDERED: ceFAZolin 1,000 MG VIAL ONE (07:11)
[2017-04-02] MEDS ORDERED: VANCOMYCIN 1,000 MG VIAL ONE (07:11)
[2017-04-02] MEDS ORDERED: ONDANSETRON 4 MG/2 ML VIAL IV PRN (08:57)
[2017-04-02] MEDS ORDERED: BISACODYL 10 MG SUPP RECTAL PRN (08:57)
[2017-04-02] MEDS ORDERED: PROMETHAZINE 25 MG/1 ML VIAL IM PRN (08:57)
[2017-04-02] MEDS ORDERED: diphenhydrAMINE CAP 25 MG CAPSULE PO PRN (08:57)
[2017-04-02] MEDS ORDERED: MAGNESIUM HYDROXIDE SUSP 30 ML UDCUP PO PRN (08:57)
[2017-04-02] MEDS ORDERED: TEMAZEPAM 7.5 MG CAPSULE PO PRN (08:57)
[2017-04-02] MEDS ORDERED: LACTULOSE 20 GM/30 ML UDCUP PO PRN (08:57)
[2017-04-02] MEDS ORDERED: DOCUSATE SODIUM 100 MG CAPSULE PO SCH (09:00)
[2017-04-02] MEDS ORDERED: MEPERIDINE 25 MG/1 ML VIAL IV PRN ×2 (09:01→11:57)
[2017-04-02] MEDS ORDERED: NALOXONE 0.4 MG/ML VIAL IV PRN (09:01)
[2017-04-02] MEDS ORDERED: ALBUTEROL 2.5 MG/3 ML NEB RESP TX PRN (09:02)
[2017-04-02] MEDS ORDERED: ALBUTEROL 0.63 MG/3 ML NEB RESP TX PRN (09:02)
[2017-04-02] MEDS ORDERED: TRANEXAMIC ACID 1,000 MG/10 ML VIAL IV ONE (09:15)
[2017-04-02] MEDS ORDERED: ROPIVACAINE 0.5% 30 ML VIAL ONE (10:20)
[2017-04-02] MEDS ORDERED: PROPOFOL 200 MG/20 ML VIAL IV ONE (10:39)
[2017-04-02] MEDS ORDERED: BUPIVACAINE SPINAL 0.75% 2 ML AMP SPINAL ONE (10:39)
[2017-04-02] MEDS ORDERED: fentaNYL 100 MCG/2 ML VIAL ONE ×2 (10:39→10:50)
[2017-04-02] MEDS ORDERED: SEVOFLURANE 1 UNIT/15 MINUTE INH ONE (10:39)
[2017-04-02] MEDS: MEPERIDINE PCA 300 MG/30 ML SYRINGE IV SCH (12:53)
[2017-04-02] MEDS: GABAPENTIN 600 MG TABLET PO SCH ×2 (15:39→20:13)
[2017-04-02] MEDS: DULoxetine 30 MG CAPSULE PO SCH (20:12)
[2017-04-02] MEDS: DOCUSATE SODIUM 100 MG CAPSULE PO SCH (20:12)
[2017-04-02] MEDS: LIDOCAINE 5% PATCH TRANSDERM SCH (20:13)
[2017-04-02] MEDS: FLUTICASONE/SALMETEROL 250-50 DISKUS 14 DOSE INH SCH (20:13)
[2017-04-02] MEDS: FONDAPARINUX 2.5 MG/0.5 ML SYRINGE SUBCUT SCH (20:20)
[2017-04-03 06:22] LABS: Basophils % 0.1 % (0.0-0.8); Eosinophils # 0.1 10*3/uL (0.0-0.87); Eosinophils % 0.8 % (0.00-10.9); Hematocrit 28.9 VOL% (35.7-47.0); Hemoglobin 9.2 GM/DL (12.0-16.0); Immature Granulocytes % 0.5 %; Immature Granulocytes Absolute 0.05 #; Lymphocytes # 1.6 10*3/uL (1.4-4.0); Lymphocytes % 15.4 % (21.3-54.2); Mean Corpuscular HGB Conc 31.8 GM/DL (32-36); Mean Corpuscular Hemoglobin 29 PG (27-34); Mean Corpuscular Volume 90.9 FL (87-102); Monocytes # 0.9 10*3/uL (0.11-0.8); Neutrophils # 7.5 10*3/uL (1.4-7.4); Neutrophils % 74.2 % (38.7-73.9); Platelet Count 132 T/CUMM (130-400); Red Blood Count 3.18 MC/CUMM (3.8-5.5); Red Cell Distribution Width 15.6 % (9.3-17.3); White Blood Count 10.1 T/CUMM (4-12)
[2017-04-03 07:00] LABS: Calcium 8.5 MG/DL (8.5-10.1); Magnesium 1.8 MG/DL (1.8-2.4); Osmolality,Calculated 272.8 MOS/KG (273-304); Potassium 3.7 MMOL/L (3.5-5.1)
[2017-04-03] MEDS: DOCUSATE SODIUM 100 MG CAPSULE PO SCH ×2 (10:07→22:06)
[2017-04-03] MEDS: FLUTICASONE/SALMETEROL 250-50 DISKUS 14 DOSE INH SCH ×2 (10:07→22:03)
[2017-04-03] MEDS: MULTIVITAMIN (CENTRUM) TABLET PO SCH (10:07)
[2017-04-03] MEDS: ASPIRIN EC 81 MG TABLET PO SCH (10:07)
[2017-04-03] MEDS: ROSUVASTATIN 20 MG TABLET PO SCH (10:08)
[2017-04-03] MEDS: FERROUS SULFATE 325 MG TABLET PO SCH (10:09)
[2017-04-03] MEDS: DULoxetine 30 MG CAPSULE PO SCH ×2 (10:09→22:06)
[2017-04-03] MEDS: VALSARTAN 80 MG TABLET PO SCH (10:09)
[2017-04-03] MEDS: FUROSEMIDE 20 MG TABLET PO SCH (10:10)
[2017-04-03] MEDS: POTASSIUM CHLORIDE 20 MEQ TABLET PO SCH (10:10)
[2017-04-03] MEDS: LIDOCAINE 5% PATCH TRANSDERM SCH ×2 (10:10→22:05)
[2017-04-03] MEDS: ETODOLAC 400 MG TABLET PO SCH (10:10)
[2017-04-03] MEDS: CYANOCOBALAMIN 500 MCG TABLET PO SCH (10:11)
[2017-04-03] MEDS: CLOPIDOGREL 75 MG TABLET PO SCH (10:11)
[2017-04-03] MEDS: METOPROLOL SUCCINATE XL 25 MG TABLET PO SCH (10:11)
[2017-04-03] MEDS: GABAPENTIN 600 MG TABLET PO SCH ×3 (10:15→22:05)
[2017-04-03] MEDS: PANTOPRAZOLE 40 MG TABLET PO SCH (10:16)
[2017-04-03] MEDS: MEPERIDINE PCA 300 MG/30 ML SYRINGE IV SCH (10:33)
[2017-04-03] MEDS: IPRATROPIUM 500 MCG/2.5 ML NEB RESP TX SCH ×4 (12:49→20:04)
[2017-04-03] MEDS: CLORAZEPATE 7.5 MG TABLET PO PRN (18:04)
[2017-04-03] MEDS: FONDAPARINUX 2.5 MG/0.5 ML SYRINGE SUBCUT SCH (22:05)
[2017-04-04] MEDS: CLORAZEPATE 7.5 MG TABLET PO PRN ×2 (01:19→21:15)
[2017-04-04 06:28] LABS: Basophils % 0.1 % (0.0-0.8); Eosinophils % 0.3 % (0.00-10.9); Hematocrit 26.6 VOL% (35.7-47.0); Hemoglobin 8.6 GM/DL (12.0-16.0); Immature Granulocytes % 0.6 %; Immature Granulocytes Absolute 0.06 #; Lymphocytes # 1.1 10*3/uL (1.4-4.0); Lymphocytes % 11.6 % (21.3-54.2); Mean Corpuscular HGB Conc 32.3 GM/DL (32-36); Mean Corpuscular Hemoglobin 29 PG (27-34); Mean Corpuscular Volume 90.2 FL (87-102); Mean Platelet Volume 10.8 FL (9.6-12.0); Monocytes # 0.7 10*3/uL (0.11-0.8); Monocytes % 7.5 % (1.7-12.7); Neutrophils # 7.5 10*3/uL (1.4-7.4); Neutrophils % 79.9 % (38.7-73.9); Platelet Count 116 T/CUMM (130-400); Red Blood Count 2.95 MC/CUMM (3.8-5.5); Red Cell Distribution Width 15.6 % (9.3-17.3); White Blood Count 9.4 T/CUMM (4-12)
[2017-04-04] MEDS: IPRATROPIUM 500 MCG/2.5 ML NEB RESP TX SCH ×5 (07:11→19:17)
[2017-04-04 07:19] LABS: Elliptocytes Few; Eosinophils 1 % (0-10); Hypochromasia 1+; Lymphocytes 7 % (20-55); Microcytosis Slight; Platelet Estimate Decreased; Segmented Neutrophils 84 % (50-85); Total Cells Counted 100
[2017-04-04] MEDS: DOCUSATE SODIUM 100 MG CAPSULE PO SCH ×2 (09:45→21:13)
[2017-04-04] MEDS: ASPIRIN EC 81 MG TABLET PO SCH (09:45)
[2017-04-04] MEDS: DULoxetine 30 MG CAPSULE PO SCH ×2 (09:45→21:13)
[2017-04-04] MEDS: POTASSIUM CHLORIDE 20 MEQ TABLET PO SCH (09:46)
[2017-04-04] MEDS: VALSARTAN 80 MG TABLET PO SCH (09:46)
[2017-04-04] MEDS: PANTOPRAZOLE 40 MG TABLET PO SCH (09:46)
[2017-04-04] MEDS: CLOPIDOGREL 75 MG TABLET PO SCH (09:46)
[2017-04-04] MEDS: ETODOLAC 400 MG TABLET PO SCH (09:48)
[2017-04-04] MEDS: GABAPENTIN 600 MG TABLET PO SCH ×3 (09:48→21:13)
[2017-04-04] MEDS: FERROUS SULFATE 325 MG TABLET PO SCH (09:48)
[2017-04-04] MEDS: CYANOCOBALAMIN 500 MCG TABLET PO SCH (09:48)
[2017-04-04] MEDS: METOPROLOL SUCCINATE XL 25 MG TABLET PO SCH (09:48)
[2017-04-04] MEDS: MULTIVITAMIN (CENTRUM) TABLET PO SCH (09:48)
[2017-04-04] MEDS: FUROSEMIDE 20 MG TABLET PO SCH (09:49)
[2017-04-04] MEDS: LIDOCAINE 5% PATCH TRANSDERM SCH ×2 (09:49→21:16)
[2017-04-04] MEDS: ROSUVASTATIN 20 MG TABLET PO SCH (09:49)
[2017-04-04] MEDS: FLUTICASONE/SALMETEROL 250-50 DISKUS 14 DOSE INH SCH ×2 (09:49→21:14)
[2017-04-04] MEDS: FONDAPARINUX 2.5 MG/0.5 ML SYRINGE SUBCUT SCH (21:13)
[2017-04-05 06:36] LABS: Basophils % 0.2 % (0.0-0.8); Eosinophils # 0.2 10*3/uL (0.0-0.87); Eosinophils % 3.6 % (0.00-10.9); Hematocrit 26.1 VOL% (35.7-47.0); Hemoglobin 8.3 GM/DL (12.0-16.0); Immature Granulocytes % 0.3 %; Immature Granulocytes Absolute 0.02 #; Lymphocytes # 0.7 10*3/uL (1.4-4.0); Lymphocytes % 10.9 % (21.3-54.2); Mean Corpuscular HGB Conc 31.8 GM/DL (32-36); Mean Corpuscular Hemoglobin 29 PG (27-34); Mean Corpuscular Volume 90.9 FL (87-102); Mean Platelet Volume 11.2 FL (9.6-12.0); Monocytes # 0.5 10*3/uL (0.11-0.8); Monocytes % 7.6 % (1.7-12.7); Neutrophils # 4.7 10*3/uL (1.4-7.4); Neutrophils % 77.4 % (38.7-73.9); Platelet Count 110 T/CUMM (130-400); Red Blood Count 2.87 MC/CUMM (3.8-5.5); Red Cell Distribution Width 15.7 % (9.3-17.3); White Blood Count 6.1 T/CUMM (4-12)
[2017-04-05] MEDS: IPRATROPIUM 500 MCG/2.5 ML NEB RESP TX SCH ×2 (06:53→10:22)
[2017-04-05 07:17] LABS: Eosinophils 6 % (0-10); Giant Platelets Few; Hypochromasia 1+; Lymphocytes 9 % (20-55); Ovalocytes Slight; Platelet Estimate Decreased; Segmented Neutrophils 81 % (50-85); Total Cells Counted 100
[2017-04-05 07:18] LABS: Microcytosis Slight
[2017-04-05] MEDS: LIDOCAINE 5% PATCH TRANSDERM SCH (09:08)
[2017-04-05] MEDS: ETODOLAC 400 MG TABLET PO SCH (09:09)
[2017-04-05] MEDS: VALSARTAN 80 MG TABLET PO SCH (09:09)
[2017-04-05] MEDS: CYANOCOBALAMIN 500 MCG TABLET PO SCH (09:09)
[2017-04-05] MEDS: METOPROLOL SUCCINATE XL 25 MG TABLET PO SCH (09:09)
[2017-04-05] MEDS: GABAPENTIN 600 MG TABLET PO SCH (09:09)
[2017-04-05] MEDS: FERROUS SULFATE 325 MG TABLET PO SCH (09:09)
[2017-04-05] MEDS: CLOPIDOGREL 75 MG TABLET PO SCH (09:09)
[2017-04-05] MEDS: ROSUVASTATIN 20 MG TABLET PO SCH (09:09)
[2017-04-05] MEDS: PANTOPRAZOLE 40 MG TABLET PO SCH (09:09)
[2017-04-05] MEDS: DOCUSATE SODIUM 100 MG CAPSULE PO SCH (09:10)
[2017-04-05] MEDS: DULoxetine 30 MG CAPSULE PO SCH (09:10)
[2017-04-05] MEDS: FUROSEMIDE 20 MG TABLET PO SCH (09:10)
[2017-04-05] MEDS: FLUTICASONE/SALMETEROL 250-50 DISKUS 14 DOSE INH SCH (09:10)
[2017-04-05] MEDS: MULTIVITAMIN (CENTRUM) TABLET PO SCH (09:10)
[2017-04-05] MEDS: ASPIRIN EC 81 MG TABLET PO SCH (09:10)
[2017-04-05] MEDS: POTASSIUM CHLORIDE 20 MEQ TABLET PO SCH (09:10)
[2017-04-05 11:20] VITALS: BP 144/59
== END 2017-04-05 11:15 | DRG 470 ==
LOC: N.SDSINP 05:47 → N.OR 05:47 → N.3E 08:57 → EDSTATUS 10:00 → N.3E 11:15
PROVIDERS: ADMIT Orthopaedic Surgery; ATTEND Orthopaedic Surgery

== ENCOUNTER 2017-04-07 04:26 | Inpatient (IN) ==
[2017-04-07] MEDS ORDERED: MORPHINE 2 MG/1 ML SYRINGE IV STA (04:58)
[2017-04-07] MEDS ORDERED: ONDANSETRON 4 MG/2 ML VIAL IV STA (04:58)
[2017-04-07] MEDS ORDERED: ACETAMINOPHEN 500 MG TABLET ONE (05:09)
[2017-04-07] MEDS ORDERED: ONDANSETRON 4 MG/2 ML VIAL ONE ×2 (05:10→05:17)
[2017-04-07] MEDS ORDERED: MORPHINE 2 MG/1 ML SYRINGE ONE (05:10)
[2017-04-07] MEDS ORDERED: ACETAMINOPHEN 500 MG TABLET PO STA (05:11)
[2017-04-07] MEDS ORDERED: HYDROmorphone 2 MG/1 ML VIAL ONE (05:18)
[2017-04-07] MEDS ORDERED: HYDROmorphone 2 MG/1 ML VIAL IV STA ×2 (05:18→05:19)
[2017-04-07 05:27] LABS: Basophils % 0.2 % (0.0-0.8); Eosinophils # 0.3 10*3/uL (0.0-0.87); Eosinophils % 4.5 % (0.00-10.9); Hematocrit 27.5 VOL% (35.7-47.0); Hemoglobin 8.6 GM/DL (12.0-16.0); Immature Granulocytes % 0.3 %; Immature Granulocytes Absolute 0.02 #; Lymphocytes # 0.9 10*3/uL (1.4-4.0); Lymphocytes % 15.5 % (21.3-54.2); Mean Corpuscular HGB Conc 31.3 GM/DL (32-36); Mean Corpuscular Hemoglobin 29 PG (27-34); Mean Corpuscular Volume 92.6 FL (87-102); Mean Platelet Volume 10.6 FL (9.6-12.0); Monocytes # 0.4 10*3/uL (0.11-0.8); Monocytes % 7.4 % (1.7-12.7); Neutrophils # 4.2 10*3/uL (1.4-7.4); Neutrophils % 72.1 % (38.7-73.9); Platelet Count 149 T/CUMM (130-400); Red Blood Count 2.97 MC/CUMM (3.8-5.5); Red Cell Distribution Width 15.7 % (9.3-17.3); White Blood Count 5.8 T/CUMM (4-12)
[2017-04-07 05:55] LABS: Albumin 2.4 G/DL (3.4-5.0); Bilirubin,Total 0.5 MG/DL (0.2-1.0); Osmolality,Calculated 275.7 MOS/KG (273-304); Potassium 3.7 MMOL/L (3.5-5.1); Total Protein 5.8 G/DL (6.4-8.3)
[2017-04-07] MEDS ORDERED: ALBUTEROL/IPRATROPIUM 3 ML NEB RESP TX STA (05:57)
[2017-04-07] MEDS ORDERED: NALOXONE 0.4 MG/ML VIAL ONE (05:59)
[2017-04-07] MEDS ORDERED: NALOXONE 0.4 MG/ML VIAL IV STA ×2 (06:10→06:17)
[2017-04-07] MEDS ORDERED: ONDANSETRON 4 MG/2 ML VIAL IV PRN (06:18)
[2017-04-07] MEDS ORDERED: ACETAMINOPHEN 325 MG TABLET PO PRN (06:18)
[2017-04-07] MEDS ORDERED: CEFEPIME 2,000 MG in SODIUM CHLORIDE 0.9% 100 ML IV STA (06:22)
[2017-04-07] MEDS ORDERED: VANCOMYCIN INJ 1,000 MG in SODIUM CHLORIDE 0.9% 250 ML IV STA (06:23)
[2017-04-07 06:29] LABS: Apearance,Urine CLEAR (Clear); Bilirubin,Urine Negative (Negative); Blood, Urine Negative (Negative); Glucose,Urine (UA) Negative (Negative); Ketones,Urine Negative (Negative); Mucus,Urine Occasional /LPF (Occasional); Nitrite,Urine Negative (Negative); Protein,Urine Negative; RBC,Urine 2 /HPF (0-4); Urine Color Yellow (Yellow); Urine Specific Gravity 1.011 (1.001-1.035); Urine Urobilinogen < 2.0 EU/DL (0.2-1.0); WBC,Urine <1 /HPF (0-6)
[2017-04-07] MEDS ORDERED: CEFEPIME 2,000 MG VIAL ONE (06:42)
[2017-04-07] MEDS ORDERED: VANCOMYCIN 1,000 MG VIAL ONE (06:42)
[2017-04-07 07:02] LABS: VBG Base Excess 7.3 MEQ/L (0-4); VBG Oxygen Saturation 87.9 %; VBG PCO2 57.4 MMHG (41-51); VBG PH 7.378
[2017-04-07] MEDS: LEVOFLOXACIN INJ 500 MG in PREMIX 1 EACH IV SCH (09:22)
[2017-04-07] MEDS: methylPREDNISolone SOD SUC 40 MG/1 ML VIAL IV SCH ×2 (09:29→22:48)
[2017-04-07] MEDS: PANTOPRAZOLE 40 MG TABLET PO SCH (09:32)
[2017-04-07] MEDS: CLOPIDOGREL 75 MG TABLET PO SCH (12:16)
[2017-04-07] MEDS: ASPIRIN EC 81 MG TABLET PO SCH (12:16)
[2017-04-07] MEDS: ALBUTEROL/IPRATROPIUM 3 ML NEB RESP TX SCH ×2 (12:51→19:05)
[2017-04-07] MEDS: GABAPENTIN 600 MG TABLET PO SCH ×2 (15:36→22:37)
[2017-04-07] MEDS: DULoxetine 30 MG CAPSULE PO SCH (22:35)
[2017-04-07] MEDS: valACYclovir 500 MG TABLET PO SCH (22:38)
[2017-04-07] MEDS: FLUTICASONE/SALMETEROL 250-50 DISKUS 14 DOSE INH SCH (22:44)
[2017-04-07] MEDS: FONDAPARINUX 2.5 MG/0.5 ML SYRINGE SUBCUT SCH (22:44)
[2017-04-08] MEDS: ALBUTEROL/IPRATROPIUM 3 ML NEB RESP TX SCH ×5 (00:13→19:42)
[2017-04-08 05:39] LABS: Hematocrit 24.3 VOL% (35.7-47.0); Immature Granulocytes % 0.6 %; Immature Granulocytes Absolute 0.03 #; Lymphocytes # 0.4 10*3/uL (1.4-4.0); Lymphocytes % 7.7 % (21.3-54.2); Mean Corpuscular HGB Conc 32.1 GM/DL (32-36); Mean Corpuscular Hemoglobin 29 PG (27-34); Mean Platelet Volume 10.6 FL (9.6-12.0); Monocytes # 0.1 10*3/uL (0.11-0.8); Monocytes % 2.2 % (1.7-12.7); Neutrophils # 4.4 10*3/uL (1.4-7.4); Neutrophils % 89.5 % (38.7-73.9); Platelet Count 147 T/CUMM (130-400); Red Cell Distribution Width 15.3 % (9.3-17.3)
[2017-04-08 05:46] LABS: Hemoglobin 7.8 GM/DL (12.0-16.0)
[2017-04-08 06:07] LABS: Albumin 2.1 G/DL (3.4-5.0); Bilirubin,Total 0.5 MG/DL (0.2-1.0); Calcium 8.7 MG/DL (8.5-10.1); Osmolality,Calculated 284.1 MOS/KG (273-304); Potassium 3.7 MMOL/L (3.5-5.1); Thyroid Stimulating Hormone 0.221 uIU/ml (0.358-3.74); Total Protein 5.6 G/DL (6.4-8.3)
[2017-04-08] MEDS ORDERED: IPRATROPIUM 500 MCG/2.5 ML NEB RESP TX SCH (07:00)
[2017-04-08] MEDS: FLUTICASONE/SALMETEROL 250-50 DISKUS 14 DOSE INH SCH ×2 (09:51→20:58)
[2017-04-08] MEDS: methylPREDNISolone SOD SUC 40 MG/1 ML VIAL IV SCH ×2 (09:51→21:46)
[2017-04-08] MEDS: VALSARTAN 80 MG TABLET PO SCH (09:51)
[2017-04-08] MEDS: PANTOPRAZOLE 40 MG TABLET PO SCH (09:52)
[2017-04-08] MEDS: DULoxetine 30 MG CAPSULE PO SCH ×2 (09:52→20:58)
[2017-04-08] MEDS: CYANOCOBALAMIN 500 MCG TABLET PO SCH (09:53)
[2017-04-08] MEDS: ROSUVASTATIN 20 MG TABLET PO SCH (09:53)
[2017-04-08] MEDS: MULTIVITAMIN (CENTRUM) TABLET PO SCH (09:54)
[2017-04-08] MEDS: METOPROLOL SUCCINATE XL 25 MG TABLET PO SCH (09:54)
[2017-04-08] MEDS: GABAPENTIN 600 MG TABLET PO SCH ×3 (09:54→20:59)
[2017-04-08] MEDS: ASPIRIN EC 81 MG TABLET PO SCH (09:55)
[2017-04-08] MEDS: valACYclovir 500 MG TABLET PO SCH ×2 (09:55→20:59)
[2017-04-08] MEDS: FERROUS SULFATE 325 MG TABLET PO SCH (09:55)
[2017-04-08] MEDS: POTASSIUM CHLORIDE 20 MEQ TABLET PO SCH (09:55)
[2017-04-08] MEDS: CLOPIDOGREL 75 MG TABLET PO SCH (09:56)
[2017-04-08] MEDS: FUROSEMIDE 20 MG TABLET PO SCH (09:56)
[2017-04-08] MEDS: LEVOFLOXACIN INJ 500 MG in PREMIX 1 EACH IV SCH (10:01)
[2017-04-08] MEDS: LIDOCAINE 5% PATCH TRANSDERM SCH (10:08)
[2017-04-08] MEDS ORDERED: MAGNESIUM HYDROXIDE SUSP 30 ML UDCUP PO PRN (13:06)
[2017-04-08] MEDS: BISACODYL 5 MG TABLET PO PRN (13:21)
[2017-04-08] MEDS: FONDAPARINUX 2.5 MG/0.5 ML SYRINGE SUBCUT SCH (20:59)
[2017-04-09] MEDS: ALBUTEROL/IPRATROPIUM 3 ML NEB RESP TX SCH ×4 (00:28→20:20)
[2017-04-09] MEDS: CLORAZEPATE 7.5 MG TABLET PO PRN ×2 (00:50→11:38)
[2017-04-09 07:32] LABS: Hematocrit 26.2 VOL% (35.7-47.0); Immature Granulocytes % 3.7 %; Immature Granulocytes Absolute 0.18 #; Lymphocytes # 0.7 10*3/uL (1.4-4.0); Lymphocytes % 14.3 % (21.3-54.2); Mean Corpuscular HGB Conc 30.5 GM/DL (32-36); Mean Corpuscular Hemoglobin 28 PG (27-34); Mean Corpuscular Volume 92.3 FL (87-102); Mean Platelet Volume 10.1 FL (9.6-12.0); Monocytes # 0.3 10*3/uL (0.11-0.8); Monocytes % 5.5 % (1.7-12.7); Neutrophils # 3.7 10*3/uL (1.4-7.4); Neutrophils % 76.5 % (38.7-73.9); Platelet Count 195 T/CUMM (130-400); Red Blood Count 2.84 MC/CUMM (3.8-5.5); Red Cell Distribution Width 15.4 % (9.3-17.3); White Blood Count 4.9 T/CUMM (4-12)
[2017-04-09 07:53] LABS: Band Neutrophils 3 % (0-10); Hypochromasia 1+; Lymphocytes 11 % (20-55); Microcytosis 1+; Myelocytes 1 %; Ovalocytes Few; Platelet Estimate Adequate; Segmented Neutrophils 79 % (50-85); Total Cells Counted 100
[2017-04-09 07:55] LABS: Calcium 9.2 MG/DL (8.5-10.1); Osmolality,Calculated 289.8 MOS/KG (273-304); Potassium 4.2 MMOL/L (3.5-5.1)
[2017-04-09] MEDS: methylPREDNISolone SOD SUC 40 MG/1 ML VIAL IV SCH ×2 (08:55→20:48)
[2017-04-09] MEDS: FUROSEMIDE 20 MG TABLET PO SCH (08:56)
[2017-04-09] MEDS: GABAPENTIN 600 MG TABLET PO SCH ×3 (08:56→20:30)
[2017-04-09] MEDS: CYANOCOBALAMIN 500 MCG TABLET PO SCH (08:56)
[2017-04-09] MEDS: ASPIRIN EC 81 MG TABLET PO SCH (08:56)
[2017-04-09] MEDS: VALSARTAN 80 MG TABLET PO SCH (08:56)
[2017-04-09] MEDS: MULTIVITAMIN (CENTRUM) TABLET PO SCH (08:56)
[2017-04-09] MEDS: METOPROLOL SUCCINATE XL 25 MG TABLET PO SCH (08:58)
[2017-04-09] MEDS: DULoxetine 30 MG CAPSULE PO SCH ×3 (08:58→15:56)
[2017-04-09] MEDS: valACYclovir 500 MG TABLET PO SCH ×2 (08:58→20:23)
[2017-04-09] MEDS: LIDOCAINE 5% PATCH TRANSDERM SCH (08:58)
[2017-04-09] MEDS: POTASSIUM CHLORIDE 20 MEQ TABLET PO SCH (08:58)
[2017-04-09] MEDS: PANTOPRAZOLE 40 MG TABLET PO SCH (08:58)
[2017-04-09] MEDS: FERROUS SULFATE 325 MG TABLET PO SCH (08:58)
[2017-04-09] MEDS: CLOPIDOGREL 75 MG TABLET PO SCH (08:58)
[2017-04-09] MEDS: ROSUVASTATIN 20 MG TABLET PO SCH (08:58)
[2017-04-09] MEDS: LEVOFLOXACIN INJ 500 MG in PREMIX 1 EACH IV SCH (09:00)
[2017-04-09] MEDS: FLUTICASONE/SALMETEROL 250-50 DISKUS 14 DOSE INH SCH ×2 (09:00→20:25)
[2017-04-09] MEDS: BISACODYL 5 MG TABLET PO PRN (15:54)
[2017-04-09] MEDS: DOCUSATE SODIUM 100 MG CAPSULE PO SCH (20:30)
[2017-04-10] MEDS: ALBUTEROL/IPRATROPIUM 3 ML NEB RESP TX SCH ×2 (00:52→07:15)
[2017-04-10] MEDS: FLUTICASONE/SALMETEROL 250-50 DISKUS 14 DOSE INH SCH (08:50)
[2017-04-10] MEDS: CYANOCOBALAMIN 500 MCG TABLET PO SCH (08:51)
[2017-04-10] MEDS: GABAPENTIN 600 MG TABLET PO SCH (08:51)
[2017-04-10] MEDS: ROSUVASTATIN 20 MG TABLET PO SCH (08:51)
[2017-04-10] MEDS: POTASSIUM CHLORIDE 20 MEQ TABLET PO SCH (08:51)
[2017-04-10] MEDS: valACYclovir 500 MG TABLET PO SCH (08:51)
[2017-04-10] MEDS: METOPROLOL SUCCINATE XL 25 MG TABLET PO SCH (08:52)
[2017-04-10] MEDS: CLOPIDOGREL 75 MG TABLET PO SCH (08:52)
[2017-04-10] MEDS: MULTIVITAMIN (CENTRUM) TABLET PO SCH (08:52)
[2017-04-10] MEDS: DULoxetine 30 MG CAPSULE PO SCH (08:52)
[2017-04-10] MEDS: FERROUS SULFATE 325 MG TABLET PO SCH (08:52)
[2017-04-10] MEDS: VALSARTAN 80 MG TABLET PO SCH (08:52)
[2017-04-10] MEDS: methylPREDNISolone SOD SUC 40 MG/1 ML VIAL IV SCH (08:53)
[2017-04-10] MEDS: DOCUSATE SODIUM 100 MG CAPSULE PO SCH (08:53)
[2017-04-10] MEDS: FUROSEMIDE 20 MG TABLET PO SCH (08:53)
[2017-04-10] MEDS: PANTOPRAZOLE 40 MG TABLET PO SCH (08:53)
[2017-04-10] MEDS: ASPIRIN EC 81 MG TABLET PO SCH (08:53)
[2017-04-10] MEDS: LIDOCAINE 5% PATCH TRANSDERM SCH (08:54)
[2017-04-10] MEDS: LEVOFLOXACIN INJ 500 MG in PREMIX 1 EACH IV SCH (08:56)
[2017-04-10 11:48] VITALS: BP 127/70
[2017-04-11] MEDS ORDERED: predniSONE 20 MG TABLET PO SCH (09:00)
[2017-04-11] MEDS ORDERED: LEVOFLOXACIN 500 MG TABLET PO SCH (09:00)
== END 2017-04-10 12:30 | DRG 189 ==
LOC: EDBD → EDUNIT# → N.ED 04:26 → N.EDINP 06:18 → N.ICU 07:24 → N.2E 04-08 14:09
PROVIDERS: ADMIT Family Medicine; ATTEND Family Medicine

== ENCOUNTER 2017-05-26 01:43 | Inpatient (IN) ==
[2017-05-26] MEDS ORDERED: ACETAMINOPHEN 500 MG TABLET PO STA (02:18)
[2017-05-26] MEDS ORDERED: ACETAMINOPHEN 500 MG TABLET ONE (02:20)
[2017-05-26] MEDS ORDERED: methylPREDNISolone SOD SUC 125 MG/2 ML VIAL IV STA (02:22)
[2017-05-26] MEDS ORDERED: SODIUM CHLORIDE 0.9% 500 ML IV STA (02:22)
[2017-05-26 02:35] LABS: Basophils % 0.4 % (0.0-0.8); Hematocrit 32.8 VOL% (35.7-47.0); Hemoglobin 10.3 GM/DL (12.0-16.0); Immature Granulocytes % 0.8 %; Immature Granulocytes Absolute 0.06 #; Lymphocytes % 13.1 % (21.3-54.2); Mean Corpuscular HGB Conc 31.4 GM/DL (32-36); Mean Corpuscular Hemoglobin 29 PG (27-34); Mean Corpuscular Volume 92.1 FL (87-102); Mean Platelet Volume 11.6 FL (9.6-12.0); Monocytes # 0.4 10*3/uL (0.11-0.8); Monocytes % 4.6 % (1.7-12.7); Neutrophils # 6.2 10*3/uL (1.4-7.4); Neutrophils % 81.1 % (38.7-73.9); Platelet Count 148 T/CUMM (130-400); Red Blood Count 3.56 MC/CUMM (3.8-5.5); Red Cell Distribution Width 15.9 % (9.3-17.3); White Blood Count 7.6 T/CUMM (4-12)
[2017-05-26 02:49] LABS: Albumin 2.6 G/DL (3.4-5.0); Bilirubin,Total 0.4 MG/DL (0.2-1.0); Calcium 8.7 MG/DL (8.5-10.1)
[2017-05-26 02:50] LABS: Osmolality,Calculated 277.7 MOS/KG (273-304); Potassium 2.9 MMOL/L (3.5-5.1); Troponin I Only 0.042 NG/ML (0.00-0.045)
[2017-05-26 03:02] LABS: Band Neutrophils 46 % (0-10); Lymphocytes 10 % (20-55); Metamyelocytes 1 %; Segmented Neutrophils 40 % (50-85); Total Cells Counted 100
[2017-05-26 03:03] LABS: Anisocytosis 1+; Poikilocytosis 1+
[2017-05-26] MEDS ORDERED: ENOXAPARIN 80 MG/0.8 ML SYRINGE SUBCUT STA (03:03)
[2017-05-26 03:04] LABS: Ovalocytes 1+
[2017-05-26 03:07] LABS: Lactic Acid 2.5 MMOL/L (0.4-2.0)
[2017-05-26] MEDS ORDERED: ENOXAPARIN 100 MG/ML SYRINGE SUBCUT ONE (03:30)
[2017-05-26] MEDS ORDERED: methylPREDNISolone SOD SUC 125 MG/2 ML VIAL ONE (03:30)
[2017-05-26] MEDS ORDERED: AZITHROMYCIN INJ 500 MG in SODIUM CHLORIDE 0.9% 250 ML IV STA (06:00)
[2017-05-26] MEDS ORDERED: cefTRIAXone 2,000 MG in SODIUM CHLORIDE 0.9% 100 ML IV ONE (06:00)
[2017-05-26] MEDS ORDERED: ACETAMINOPHEN 325 MG TABLET PO PRN (06:02)
[2017-05-26] MEDS ORDERED: ONDANSETRON 4 MG/2 ML VIAL IV PRN (06:02)
[2017-05-26] MEDS ORDERED: BISACODYL 5 MG TABLET PO PRN (06:04)
[2017-05-26] MEDS ORDERED: MAGNESIUM HYDROXIDE SUSP 30 ML UDCUP PO PRN (06:04)
[2017-05-26] MEDS ORDERED: ALBUTEROL/IPRATROPIUM 3 ML NEB RESP TX PRN (06:04)
[2017-05-26] MEDS ORDERED: AZITHROMYCIN 500 MG VIAL IV ONE ×2 (06:18→06:21)
[2017-05-26] MEDS ORDERED: cefTRIAXone 1,000 MG VIAL ONE ×2 (06:18→06:21)
[2017-05-26] MEDS ORDERED: SODIUM CHLORIDE 0.9% 100 ML IV ONE (06:19)
[2017-05-26] MEDS ORDERED: predniSONE 10 MG TABLET PO SCH (09:00)
[2017-05-26] MEDS ORDERED: ALBUTEROL 2.5 MG/3 ML NEB RESP TX PRN (09:19)
[2017-05-26] MEDS: LACTATED RINGERS 1,000 ML IV SCH ×2 (09:21→14:36)
[2017-05-26] MEDS: ROSUVASTATIN 20 MG TABLET PO SCH (09:23)
[2017-05-26] MEDS: GABAPENTIN 600 MG TABLET PO SCH ×3 (09:23→20:54)
[2017-05-26] MEDS: MULTIVITAMIN (CENTRUM) TABLET PO SCH (09:23)
[2017-05-26] MEDS: CLOPIDOGREL 75 MG TABLET PO SCH (09:23)
[2017-05-26] MEDS: FUROSEMIDE 20 MG TABLET PO SCH (09:23)
[2017-05-26] MEDS: PANTOPRAZOLE 40 MG TABLET PO SCH (09:23)
[2017-05-26] MEDS: VALSARTAN 80 MG TABLET PO SCH (09:23)
[2017-05-26] MEDS: METOPROLOL SUCCINATE XL 25 MG TABLET PO SCH (09:23)
[2017-05-26] MEDS: DULoxetine 30 MG CAPSULE PO SCH ×2 (09:23→20:55)
[2017-05-26] MEDS: DOCUSATE SODIUM 100 MG CAPSULE PO SCH ×2 (09:23→20:56)
[2017-05-26] MEDS: CYANOCOBALAMIN 500 MCG TABLET PO SCH (09:23)
[2017-05-26] MEDS: ASPIRIN EC 81 MG TABLET PO SCH (09:23)
[2017-05-26] MEDS: FERROUS SULFATE 325 MG TABLET PO SCH (09:23)
[2017-05-26] MEDS: POTASSIUM CHLORIDE 20 MEQ TABLET PO SCH (09:23)
[2017-05-26] MEDS: LIDOCAINE 5% PATCH TRANSDERM SCH (09:24)
[2017-05-26] MEDS: cefTRIAXone 1,000 MG in SYRINGE 1 EACH IV SCH (10:20)
[2017-05-26] MEDS: AZITHROMYCIN INJ 500 MG in SODIUM CHLORIDE 0.9% 250 ML IV SCH (10:20)
[2017-05-26] MEDS: methylPREDNISolone SOD SUC 40 MG/1 ML VIAL IV SCH ×2 (10:35→20:59)
[2017-05-26] MEDS: MAGNESIUM OXIDE 400 MG TABLET PO SCH ×2 (10:35→20:56)
[2017-05-26] MEDS: ETODOLAC 400 MG TABLET PO SCH (10:35)
[2017-05-26] MEDS: FLUTICASONE/SALMETEROL 250-50 DISKUS 14 DOSE INH SCH ×2 (10:35→20:59)
[2017-05-26] MEDS: IPRATROPIUM 500 MCG/2.5 ML NEB RESP TX SCH ×4 (10:56→19:18)
[2017-05-27 06:26] LABS: Hematocrit 27.5 VOL% (35.7-47.0); Hemoglobin 8.5 GM/DL (12.0-16.0); Immature Granulocytes % 0.9 %; Immature Granulocytes Absolute 0.07 #; Lymphocytes # 0.9 10*3/uL (1.4-4.0); Lymphocytes % 11.3 % (21.3-54.2); Mean Corpuscular HGB Conc 30.9 GM/DL (32-36); Mean Corpuscular Hemoglobin 28 PG (27-34); Mean Corpuscular Volume 91.7 FL (87-102); Monocytes # 0.4 10*3/uL (0.11-0.8); Monocytes % 4.9 % (1.7-12.7); Neutrophils # 6.8 10*3/uL (1.4-7.4); Neutrophils % 82.9 % (38.7-73.9); Platelet Count 119 T/CUMM (130-400); Red Cell Distribution Width 15.9 % (9.3-17.3); White Blood Count 8.2 T/CUMM (4-12)
[2017-05-27 06:55] LABS: Band Neutrophils 7 % (0-10); Lymphocytes 17 % (20-55); Segmented Neutrophils 74 % (50-85); Total Cells Counted 100
[2017-05-27 06:56] LABS: Hypochromasia 1+; Microcytosis 1+; Ovalocytes Slight
[2017-05-27 06:57] LABS: Platelet Estimate Adequate
[2017-05-27 06:59] LABS: Calcium 8.4 MG/DL (8.5-10.1); Osmolality,Calculated 290.8 MOS/KG (273-304); Potassium 3.1 MMOL/L (3.5-5.1)
[2017-05-27] MEDS: IPRATROPIUM 500 MCG/2.5 ML NEB RESP TX SCH ×4 (07:47→19:41)
[2017-05-27] MEDS: cefTRIAXone 1,000 MG in SYRINGE 1 EACH IV SCH (08:06)
[2017-05-27] MEDS: AZITHROMYCIN INJ 500 MG in SODIUM CHLORIDE 0.9% 250 ML IV SCH (08:12)
[2017-05-27] MEDS: FUROSEMIDE 20 MG TABLET PO SCH (09:18)
[2017-05-27] MEDS: FLUTICASONE/SALMETEROL 250-50 DISKUS 14 DOSE INH SCH ×2 (09:18→20:46)
[2017-05-27] MEDS: CYANOCOBALAMIN 500 MCG TABLET PO SCH (09:18)
[2017-05-27] MEDS: GABAPENTIN 600 MG TABLET PO SCH ×3 (09:18→20:43)
[2017-05-27] MEDS: MULTIVITAMIN (CENTRUM) TABLET PO SCH (09:18)
[2017-05-27] MEDS: POTASSIUM CHLORIDE 20 MEQ TABLET PO SCH (09:18)
[2017-05-27] MEDS: VALSARTAN 80 MG TABLET PO SCH (09:19)
[2017-05-27] MEDS: FERROUS SULFATE 325 MG TABLET PO SCH (09:19)
[2017-05-27] MEDS: DOCUSATE SODIUM 100 MG CAPSULE PO SCH ×2 (09:19→20:43)
[2017-05-27] MEDS: METOPROLOL SUCCINATE XL 25 MG TABLET PO SCH (09:19)
[2017-05-27] MEDS: PANTOPRAZOLE 40 MG TABLET PO SCH (09:19)
[2017-05-27] MEDS: ROSUVASTATIN 20 MG TABLET PO SCH (09:19)
[2017-05-27] MEDS: ASPIRIN EC 81 MG TABLET PO SCH (09:19)
[2017-05-27] MEDS: DULoxetine 30 MG CAPSULE PO SCH ×2 (09:19→20:43)
[2017-05-27] MEDS: CLOPIDOGREL 75 MG TABLET PO SCH (09:19)
[2017-05-27] MEDS: LIDOCAINE 5% PATCH TRANSDERM SCH (09:20)
[2017-05-27] MEDS: methylPREDNISolone SOD SUC 40 MG/1 ML VIAL IV SCH ×2 (09:21→20:43)
[2017-05-27] MEDS: MAGNESIUM OXIDE 400 MG TABLET PO SCH ×2 (09:24→20:43)
[2017-05-27] MEDS ORDERED: POTASSIUM CHLORIDE 10 MEQ TABLET PO STA (09:35)
[2017-05-27] MEDS: ETODOLAC 400 MG TABLET PO SCH (09:49)
[2017-05-28] MEDS: CLORAZEPATE 7.5 MG TABLET PO PRN ×2 (00:55→15:40)
[2017-05-28] MEDS: LACTATED RINGERS 1,000 ML IV SCH ×2 (03:39→09:45)
[2017-05-28] MEDS: cefTRIAXone 1,000 MG in SYRINGE 1 EACH IV SCH (06:08)
[2017-05-28] MEDS: IPRATROPIUM 500 MCG/2.5 ML NEB RESP TX SCH ×4 (07:19→19:45)
[2017-05-28 07:51] LABS: Calcium 8.3 MG/DL (8.5-10.1); Osmolality,Calculated 291.7 MOS/KG (273-304); Potassium 3.6 MMOL/L (3.5-5.1)
[2017-05-28] MEDS: methylPREDNISolone SOD SUC 40 MG/1 ML VIAL IV SCH ×2 (09:41→21:30)
[2017-05-28] MEDS: AZITHROMYCIN INJ 500 MG in SODIUM CHLORIDE 0.9% 250 ML IV SCH (09:41)
[2017-05-28] MEDS: DULoxetine 30 MG CAPSULE PO SCH ×3 (09:43→21:25)
[2017-05-28] MEDS: ETODOLAC 400 MG TABLET PO SCH (09:43)
[2017-05-28] MEDS: VALSARTAN 80 MG TABLET PO SCH (09:44)
[2017-05-28] MEDS: MAGNESIUM OXIDE 400 MG TABLET PO SCH ×2 (09:44→21:23)
[2017-05-28] MEDS: GABAPENTIN 600 MG TABLET PO SCH ×3 (09:44→21:23)
[2017-05-28] MEDS: POTASSIUM CHLORIDE 20 MEQ TABLET PO SCH ×2 (09:44→21:23)
[2017-05-28] MEDS: MULTIVITAMIN (CENTRUM) TABLET PO SCH (09:44)
[2017-05-28] MEDS: DOCUSATE SODIUM 100 MG CAPSULE PO SCH ×2 (09:44→21:23)
[2017-05-28] MEDS: ROSUVASTATIN 20 MG TABLET PO SCH (09:44)
[2017-05-28] MEDS: METOPROLOL SUCCINATE XL 25 MG TABLET PO SCH (09:44)
[2017-05-28] MEDS: CLOPIDOGREL 75 MG TABLET PO SCH (09:44)
[2017-05-28] MEDS: CYANOCOBALAMIN 500 MCG TABLET PO SCH (09:44)
[2017-05-28] MEDS: LIDOCAINE 5% PATCH TRANSDERM SCH (09:45)
[2017-05-28] MEDS: FERROUS SULFATE 325 MG TABLET PO SCH (09:45)
[2017-05-28] MEDS: ASPIRIN EC 81 MG TABLET PO SCH (09:45)
[2017-05-28] MEDS: FUROSEMIDE 20 MG TABLET PO SCH (09:45)
[2017-05-28] MEDS: FLUTICASONE/SALMETEROL 250-50 DISKUS 14 DOSE INH SCH ×2 (09:45→21:31)
[2017-05-28] MEDS: PANTOPRAZOLE 40 MG TABLET PO SCH (09:45)
[2017-05-29] MEDS: LACTATED RINGERS 1,000 ML IV SCH (03:18)
[2017-05-29] MEDS: cefTRIAXone 1,000 MG in SYRINGE 1 EACH IV SCH (06:45)
[2017-05-29] MEDS: IPRATROPIUM 500 MCG/2.5 ML NEB RESP TX SCH ×4 (07:15→20:09)
[2017-05-29 08:41] LABS: Basophils % 0.3 % (0.0-0.8); Hematocrit 28.6 VOL% (35.7-47.0); Hemoglobin 9.1 GM/DL (12.0-16.0); Immature Granulocytes Absolute 0.69 #; Lymphocytes # 1.8 10*3/uL (1.4-4.0); Lymphocytes % 26.2 % (21.3-54.2); Mean Corpuscular HGB Conc 31.8 GM/DL (32-36); Mean Corpuscular Hemoglobin 29 PG (27-34); Mean Corpuscular Volume 90.5 FL (87-102); Monocytes # 0.5 10*3/uL (0.11-0.8); Monocytes % 7.7 % (1.7-12.7); Neutrophils # 3.8 10*3/uL (1.4-7.4); Neutrophils % 55.8 % (38.7-73.9); Platelet Count 152 T/CUMM (130-400); Red Blood Count 3.16 MC/CUMM (3.8-5.5); Red Cell Distribution Width 15.6 % (9.3-17.3); White Blood Count 6.9 T/CUMM (4-12)
[2017-05-29 08:53] LABS: Band Neutrophils 5 % (0-10); Hypochromasia 1+; Lymphocytes 30 % (20-55); Metamyelocytes 2 %; Microcytosis 1+; Promyelocytes 1 %; Segmented Neutrophils 55 % (50-85); Total Cells Counted 100
[2017-05-29 08:54] LABS: Ovalocytes Few; Platelet Estimate Adequate
[2017-05-29] MEDS: AZITHROMYCIN INJ 500 MG in SODIUM CHLORIDE 0.9% 250 ML IV SCH (09:16)
[2017-05-29 09:18] LABS: Calcium 8.5 MG/DL (8.5-10.1); Osmolality,Calculated 288.8 MOS/KG (273-304); Potassium 3.9 MMOL/L (3.5-5.1)
[2017-05-29] MEDS: methylPREDNISolone SOD SUC 40 MG/1 ML VIAL IV SCH ×2 (09:19→22:07)
[2017-05-29] MEDS: VALSARTAN 80 MG TABLET PO SCH (09:22)
[2017-05-29] MEDS: POTASSIUM CHLORIDE 20 MEQ TABLET PO SCH ×2 (09:22→22:06)
[2017-05-29] MEDS: PANTOPRAZOLE 40 MG TABLET PO SCH (09:23)
[2017-05-29] MEDS: DOCUSATE SODIUM 100 MG CAPSULE PO SCH ×2 (09:23→22:07)
[2017-05-29] MEDS: DULoxetine 30 MG CAPSULE PO SCH ×2 (09:23→22:07)
[2017-05-29] MEDS: CLOPIDOGREL 75 MG TABLET PO SCH (09:24)
[2017-05-29] MEDS: METOPROLOL SUCCINATE XL 25 MG TABLET PO SCH (09:24)
[2017-05-29] MEDS: ROSUVASTATIN 20 MG TABLET PO SCH (09:24)
[2017-05-29] MEDS: MULTIVITAMIN (CENTRUM) TABLET PO SCH (09:24)
[2017-05-29] MEDS: FERROUS SULFATE 325 MG TABLET PO SCH (09:24)
[2017-05-29] MEDS: GABAPENTIN 600 MG TABLET PO SCH ×3 (09:24→22:06)
[2017-05-29] MEDS: FUROSEMIDE 20 MG TABLET PO SCH (09:24)
[2017-05-29] MEDS: ETODOLAC 400 MG TABLET PO SCH (09:24)
[2017-05-29] MEDS: MAGNESIUM OXIDE 400 MG TABLET PO SCH ×2 (09:25→22:09)
[2017-05-29] MEDS: CYANOCOBALAMIN 500 MCG TABLET PO SCH (09:25)
[2017-05-29] MEDS: ASPIRIN EC 81 MG TABLET PO SCH (09:25)
[2017-05-29] MEDS: LIDOCAINE 5% PATCH TRANSDERM SCH (09:26)
[2017-05-29] MEDS: FLUTICASONE/SALMETEROL 250-50 DISKUS 14 DOSE INH SCH ×2 (09:31→22:09)
[2017-05-29] MEDS: CLORAZEPATE 7.5 MG TABLET PO PRN (15:29)
[2017-05-30] MEDS: LACTATED RINGERS 1,000 ML IV SCH ×2 (00:12→18:11)
[2017-05-30] MEDS: CLORAZEPATE 7.5 MG TABLET PO PRN ×2 (00:47→21:55)
[2017-05-30] MEDS: IPRATROPIUM 500 MCG/2.5 ML NEB RESP TX SCH ×4 (07:04→19:21)
[2017-05-30] MEDS: cefTRIAXone 1,000 MG in SYRINGE 1 EACH IV SCH (10:10)
[2017-05-30] MEDS: methylPREDNISolone SOD SUC 40 MG/1 ML VIAL IV SCH ×2 (10:11→21:33)
[2017-05-30] MEDS: METOPROLOL SUCCINATE XL 25 MG TABLET PO SCH (10:19)
[2017-05-30] MEDS: GABAPENTIN 600 MG TABLET PO SCH ×3 (10:20→21:30)
[2017-05-30] MEDS: DULoxetine 30 MG CAPSULE PO SCH ×2 (10:20→21:30)
[2017-05-30] MEDS: ETODOLAC 400 MG TABLET PO SCH (10:20)
[2017-05-30] MEDS: DOCUSATE SODIUM 100 MG CAPSULE PO SCH ×2 (10:21→21:30)
[2017-05-30] MEDS: ASPIRIN EC 81 MG TABLET PO SCH (10:21)
[2017-05-30] MEDS: POTASSIUM CHLORIDE 20 MEQ TABLET PO SCH ×2 (10:21→21:30)
[2017-05-30] MEDS: MULTIVITAMIN (CENTRUM) TABLET PO SCH (10:21)
[2017-05-30] MEDS: ROSUVASTATIN 20 MG TABLET PO SCH (10:21)
[2017-05-30] MEDS: PANTOPRAZOLE 40 MG TABLET PO SCH (10:21)
[2017-05-30] MEDS: MAGNESIUM OXIDE 400 MG TABLET PO SCH ×2 (10:21→21:30)
[2017-05-30] MEDS: CYANOCOBALAMIN 500 MCG TABLET PO SCH (10:21)
[2017-05-30] MEDS: FERROUS SULFATE 325 MG TABLET PO SCH (10:22)
[2017-05-30] MEDS: FUROSEMIDE 20 MG TABLET PO SCH (10:22)
[2017-05-30] MEDS: VALSARTAN 80 MG TABLET PO SCH (10:22)
[2017-05-30] MEDS: CLOPIDOGREL 75 MG TABLET PO SCH (10:23)
[2017-05-30] MEDS: FLUTICASONE/SALMETEROL 250-50 DISKUS 14 DOSE INH SCH ×2 (10:24→21:34)
[2017-05-30] MEDS: LIDOCAINE 5% PATCH TRANSDERM SCH (10:34)
[2017-05-30] MEDS: AZITHROMYCIN INJ 500 MG in SODIUM CHLORIDE 0.9% 250 ML IV SCH (11:33)
[2017-05-31 06:38] LABS: Basophils % 0.3 % (0.0-0.8); Hematocrit 32.4 VOL% (35.7-47.0); Immature Granulocytes % 9.3 %; Immature Granulocytes Absolute 0.88 #; Lymphocytes # 1.9 10*3/uL (1.4-4.0); Lymphocytes % 19.8 % (21.3-54.2); Mean Corpuscular HGB Conc 30.9 GM/DL (32-36); Mean Corpuscular Hemoglobin 28 PG (27-34); Mean Corpuscular Volume 91.8 FL (87-102); Monocytes # 0.3 10*3/uL (0.11-0.8); Monocytes % 3.4 % (1.7-12.7); Neutrophils # 6.4 10*3/uL (1.4-7.4); Neutrophils % 67.2 % (38.7-73.9); Platelet Count 213 T/CUMM (130-400); Red Blood Count 3.53 MC/CUMM (3.8-5.5); Red Cell Distribution Width 15.7 % (9.3-17.3); White Blood Count 9.5 T/CUMM (4-12)
[2017-05-31 06:59] LABS: Band Neutrophils 3 % (0-10); Giant Platelets Few; Hypochromasia 1+; Lymphocytes 21 % (20-55); Microcytosis 1+; Ovalocytes Slight; Platelet Estimate Adequate; Segmented Neutrophils 70 % (50-85); Total Cells Counted 100
[2017-05-31 07:12] LABS: Calcium 8.6 MG/DL (8.5-10.1); Potassium 4.7 MMOL/L (3.5-5.1)
[2017-05-31] MEDS: IPRATROPIUM 500 MCG/2.5 ML NEB RESP TX SCH ×4 (07:35→20:01)
[2017-05-31] MEDS: LACTATED RINGERS 1,000 ML IV SCH ×2 (08:18→13:51)
[2017-05-31] MEDS: cefTRIAXone 1,000 MG in SYRINGE 1 EACH IV SCH (08:39)
[2017-05-31] MEDS: AZITHROMYCIN INJ 500 MG in SODIUM CHLORIDE 0.9% 250 ML IV SCH (08:42)
[2017-05-31] MEDS: methylPREDNISolone SOD SUC 40 MG/1 ML VIAL IV SCH ×2 (08:43→23:07)
[2017-05-31] MEDS: LIDOCAINE 5% PATCH TRANSDERM SCH (08:46)
[2017-05-31] MEDS: MULTIVITAMIN (CENTRUM) TABLET PO SCH (08:47)
[2017-05-31] MEDS: VALSARTAN 80 MG TABLET PO SCH (08:48)
[2017-05-31] MEDS: METOPROLOL SUCCINATE XL 25 MG TABLET PO SCH (08:48)
[2017-05-31] MEDS: GABAPENTIN 600 MG TABLET PO SCH ×4 (08:49→20:38)
[2017-05-31] MEDS: ETODOLAC 400 MG TABLET PO SCH (08:49)
[2017-05-31] MEDS: CLOPIDOGREL 75 MG TABLET PO SCH (08:49)
[2017-05-31] MEDS: DOCUSATE SODIUM 100 MG CAPSULE PO SCH ×2 (08:49→20:38)
[2017-05-31] MEDS: ROSUVASTATIN 20 MG TABLET PO SCH (08:49)
[2017-05-31] MEDS: DULoxetine 30 MG CAPSULE PO SCH ×2 (08:49→20:37)
[2017-05-31] MEDS: FUROSEMIDE 20 MG TABLET PO SCH (08:49)
[2017-05-31] MEDS: CYANOCOBALAMIN 500 MCG TABLET PO SCH (08:49)
[2017-05-31] MEDS: PANTOPRAZOLE 40 MG TABLET PO SCH (08:49)
[2017-05-31] MEDS: POTASSIUM CHLORIDE 20 MEQ TABLET PO SCH ×2 (08:49→20:38)
[2017-05-31] MEDS: ASPIRIN EC 81 MG TABLET PO SCH (08:50)
[2017-05-31] MEDS: MAGNESIUM OXIDE 400 MG TABLET PO SCH ×2 (08:50→20:37)
[2017-05-31] MEDS: FERROUS SULFATE 325 MG TABLET PO SCH (08:50)
[2017-05-31] MEDS: FLUTICASONE/SALMETEROL 250-50 DISKUS 14 DOSE INH SCH ×2 (08:52→23:08)
[2017-06-01] MEDS: cefTRIAXone 1,000 MG in SYRINGE 1 EACH IV SCH (07:00)
[2017-06-01] MEDS: IPRATROPIUM 500 MCG/2.5 ML NEB RESP TX SCH (07:18)
[2017-06-01] MEDS: AZITHROMYCIN INJ 500 MG in SODIUM CHLORIDE 0.9% 250 ML IV SCH (08:30)
[2017-06-01] MEDS: FLUTICASONE/SALMETEROL 250-50 DISKUS 14 DOSE INH SCH (08:31)
[2017-06-01] MEDS: ASPIRIN EC 81 MG TABLET PO SCH (08:32)
[2017-06-01] MEDS: CLOPIDOGREL 75 MG TABLET PO SCH (08:32)
[2017-06-01] MEDS: DOCUSATE SODIUM 100 MG CAPSULE PO SCH (08:32)
[2017-06-01] MEDS: MAGNESIUM OXIDE 400 MG TABLET PO SCH (08:33)
[2017-06-01] MEDS: POTASSIUM CHLORIDE 20 MEQ TABLET PO SCH (08:33)
[2017-06-01] MEDS: FUROSEMIDE 20 MG TABLET PO SCH (08:33)
[2017-06-01] MEDS: MULTIVITAMIN (CENTRUM) TABLET PO SCH (08:33)
[2017-06-01] MEDS: DULoxetine 30 MG CAPSULE PO SCH (08:33)
[2017-06-01] MEDS: FERROUS SULFATE 325 MG TABLET PO SCH (08:33)
[2017-06-01] MEDS: GABAPENTIN 600 MG TABLET PO SCH (08:33)
[2017-06-01] MEDS: PANTOPRAZOLE 40 MG TABLET PO SCH (08:33)
[2017-06-01] MEDS: ETODOLAC 400 MG TABLET PO SCH (08:33)
[2017-06-01] MEDS: METOPROLOL SUCCINATE XL 25 MG TABLET PO SCH (08:34)
[2017-06-01] MEDS: ROSUVASTATIN 20 MG TABLET PO SCH (08:34)
[2017-06-01] MEDS: LIDOCAINE 5% PATCH TRANSDERM SCH (08:34)
[2017-06-01] MEDS: CYANOCOBALAMIN 500 MCG TABLET PO SCH (08:34)
[2017-06-01] MEDS: methylPREDNISolone SOD SUC 40 MG/1 ML VIAL IV SCH (08:34)
[2017-06-01] MEDS: VALSARTAN 80 MG TABLET PO SCH (08:35)
[2017-06-01 08:44] VITALS: BP 145/88
== END 2017-06-01 10:25 | disposition home or self-care (01) | DRG 190 ==
LOC: N.ED 01:43 → N.EDINP 06:02 → N.5E 06:35
PROVIDERS: ADMIT Family Medicine; ATTEND Family Medicine

== ENCOUNTER 2018-05-25 22:38 | Observation (INO) ==
[2018-05-25 23:35] LABS: Basophils % 0.1 % (0.0-0.8); Eosinophils # 0.2 10*3/uL (0.0-0.87); Eosinophils % 1.3 % (0.00-10.9); Hematocrit 33.5 VOL% (35.7-47.0); Hemoglobin 10.4 GM/DL (12.0-16.0); Immature Granulocytes % 0.5 %; Immature Granulocytes Absolute 0.06 #; Lymphocytes # 1.6 10*3/uL (1.4-4.0); Mean Corpuscular Hemoglobin 30 PG (27-34); Mean Platelet Volume 11.1 FL (9.6-12.0); Monocytes # 0.9 10*3/uL (0.11-0.8); Monocytes % 7.4 % (1.7-12.7); Neutrophils % 76.7 % (38.7-73.9); Platelet Count 131 T/CUMM (130-400); Red Blood Count 3.49 MC/CUMM (3.8-5.5); Red Cell Distribution Width 14.6 % (9.3-17.3); White Blood Count 11.7 T/CUMM (4-12)
[2018-05-25] MEDS ORDERED: SODIUM CHLORIDE 0.9% 1,000 ML IV STA (23:45)
[2018-05-25 23:46] LABS: PT Patient Result 10.4 SECS; Partial Thromboplastin Time 25.6 SECS (0-40)
[2018-05-25 23:52] LABS: Alanine Aminotransferase 12 U/L (13-56); Albumin 2.8 G/DL (3.4-5.0); Alkaline Phosphatase 94 U/L (45-117); Aspartate Amino Transferase 17 U/L (0-37); Blood Urea Nitrogen 26 MG/DL (7-18); Calcium 8.7 MG/DL (8.5-10.1); Glucose 129 MG/DL (74-106); Osmolality,Calculated 285.4 MOS/KG (273-304); Potassium 3.5 MMOL/L (3.5-5.1); Sodium 140 MMOL/L (136-145)
[2018-05-25 23:53] LABS: Troponin I 0.461 NG/ML (0.00-0.045)
[2018-05-26] MEDS ORDERED: LEVOFLOXACIN INJ 500 MG in PREMIX 1 EACH IV STA (01:31)
[2018-05-26] MEDS ORDERED: methylPREDNISolone SOD SUC 125 MG/2 ML VIAL IV STA (01:31)
[2018-05-26] MEDS ORDERED: ASPIRIN EC 325 MG TABLET PO STA (01:33)
[2018-05-26] MEDS ORDERED: ONDANSETRON 4 MG/2 ML VIAL IV PRN (01:33)
[2018-05-26] MEDS: ALBUTEROL/IPRATROPIUM 3 ML NEB RESP TX SCH ×6 (02:06→23:11)
[2018-05-26] MEDS: SODIUM CHLORIDE 0.9% 1,000 ML IV SCH ×3 (02:40→19:06)
[2018-05-26 04:23] LABS: Basophils % 0.1 % (0.0-0.8); Eosinophils % 0.3 % (0.00-10.9); Hematocrit 31.4 VOL% (35.7-47.0); Hemoglobin 9.8 GM/DL (12.0-16.0); Immature Granulocytes % 0.3 %; Immature Granulocytes Absolute 0.03 #; Lymphocytes # 0.6 10*3/uL (1.4-4.0); Lymphocytes % 6.2 % (21.3-54.2); Mean Corpuscular HGB Conc 31.2 GM/DL (32-36); Mean Corpuscular Hemoglobin 30 PG (27-34); Monocytes # 0.3 10*3/uL (0.11-0.8); Monocytes % 3.5 % (1.7-12.7); Neutrophils % 89.6 % (38.7-73.9); Platelet Count 121 T/CUMM (130-400); Red Blood Count 3.27 MC/CUMM (3.8-5.5); Red Cell Distribution Width 14.5 % (9.3-17.3)
[2018-05-26] MEDS ORDERED: NICOTINE 14 MG/24 HR PATCH TRANSDERM PRN (04:43)
[2018-05-26 05:21] LABS: Albumin 2.8 G/DL (3.4-5.0); Bilirubin,Total 0.4 MG/DL (0.2-1.0); Calcium 8.2 MG/DL (8.5-10.1); Osmolality,Calculated 286.4 MOS/KG (273-304); Potassium 3.7 MMOL/L (3.5-5.1); Total Protein 6.2 G/DL (6.4-8.3)
[2018-05-26] MEDS: methylPREDNISolone SOD SUC 40 MG/1 ML VIAL IV SCH ×2 (09:14→16:29)
[2018-05-26] MEDS: PANTOPRAZOLE 40 MG TABLET PO SCH (09:14)
[2018-05-26] MEDS ORDERED: FUROSEMIDE 40 MG/4 ML VIAL IV ONE (14:13)
[2018-05-26] MEDS ORDERED: MAGNESIUM SULF RIDER 2 GM in PREMIX 1 EACH IV PRN (14:19)
[2018-05-26] MEDS ORDERED: MAGNESIUM SULF RIDER 4 GM in PREMIX 1 EACH IV PRN (14:19)
[2018-05-26] MEDS: METOPROLOL SUCCINATE XL 25 MG TABLET PO SCH (14:46)
[2018-05-26] MEDS: CLOPIDOGREL 75 MG TABLET PO SCH (14:47)
[2018-05-26] MEDS: ASPIRIN EC 81 MG TABLET PO SCH (14:47)
[2018-05-26] MEDS: ROSUVASTATIN 20 MG TABLET PO SCH (14:47)
[2018-05-26] MEDS: OLMESARTAN 20 MG TABLET PO SCH (14:47)
[2018-05-26] MEDS ORDERED: BISACODYL 5 MG TABLET PO PRN (15:05)
[2018-05-26] MEDS: VENLAFAXINE XR 37.5 MG CAPSULE PO SCH (15:22)
[2018-05-26] MEDS: CLORAZEPATE 7.5 MG TABLET PO PRN (15:22)
[2018-05-26] MEDS ORDERED: methylPREDNISolone SOD SUC 40 MG/1 ML VIAL IV SCH (17:30)
[2018-05-26] MEDS: DOCUSATE SODIUM 100 MG CAPSULE PO SCH (20:09)
[2018-05-26] MEDS: GABAPENTIN 600 MG TABLET PO SCH (20:10)
[2018-05-26] MEDS: DULoxetine 30 MG CAPSULE PO SCH (20:12)
[2018-05-26] MEDS ORDERED: GABAPENTIN 300 MG CAPSULE PO ONE (21:08)
[2018-05-26] MEDS ORDERED: TEMAZEPAM 7.5 MG CAPSULE PO PRN (21:10)
[2018-05-26] MEDS: FLUTICASONE/SALMETEROL 250-50 DISKUS 14 DOSE INH SCH (22:55)
[2018-05-26] MEDS: ACETAMINOPHEN 325 MG TABLET PO PRN (22:56)
[2018-05-27] MEDS ORDERED: LEVOFLOXACIN INJ 250 MG in PREMIX 1 EACH IV SCH (02:00)
[2018-05-27] MEDS: ALBUTEROL/IPRATROPIUM 3 ML NEB RESP TX SCH ×4 (03:17→20:10)
[2018-05-27] MEDS: CLORAZEPATE 7.5 MG TABLET PO PRN ×2 (04:24→15:12)
[2018-05-27 04:30] LABS: Basophils % 0.1 % (0.0-0.8); Hematocrit 28.1 VOL% (35.7-47.0); Hemoglobin 8.8 GM/DL (12.0-16.0); Immature Granulocytes % 1.1 %; Lymphocytes # 0.7 10*3/uL (1.4-4.0); Lymphocytes % 7.8 % (21.3-54.2); Mean Corpuscular HGB Conc 31.3 GM/DL (32-36); Mean Corpuscular Hemoglobin 30 PG (27-34); Mean Corpuscular Volume 95.6 FL (87-102); Mean Platelet Volume 11.8 FL (9.6-12.0); Monocytes # 0.4 10*3/uL (0.11-0.8); Platelet Count 128 T/CUMM (130-400); Red Blood Count 2.94 MC/CUMM (3.8-5.5); Red Cell Distribution Width 14.4 % (9.3-17.3); White Blood Count 9.2 T/CUMM (4-12)
[2018-05-27 04:39] LABS: Calcium 8.2 MG/DL (8.5-10.1); Potassium 3.3 MMOL/L (3.5-5.1)
[2018-05-27] MEDS: POTASSIUM CHLORIDE 20 MEQ TABLET PO PRN ×3 (06:37→11:43)
[2018-05-27] MEDS ORDERED: FUROSEMIDE 20 MG/2 ML VIAL IV SCH (08:00)
[2018-05-27] MEDS: methylPREDNISolone SOD SUC 40 MG/1 ML VIAL IV SCH ×2 (08:07→22:14)
[2018-05-27] MEDS: LEVOFLOXACIN INJ 250 MG in PREMIX 1 EACH IV SCH (08:16)
[2018-05-27] MEDS ORDERED: ETODOLAC 400 MG TABLET PO SCH (09:00)
[2018-05-27] MEDS ORDERED: NON-FORMULARY MEDICATION (Tiotropium Inhalation 18 MCG) INH SCH (09:00)
[2018-05-27] MEDS ORDERED: FUROSEMIDE 40 MG/4 ML VIAL IV SCH (09:00)
[2018-05-27] MEDS ORDERED: FERROUS SULFATE 325 MG TABLET PO SCH (09:00)
[2018-05-27] MEDS: DULoxetine 30 MG CAPSULE PO SCH ×2 (09:15→22:09)
[2018-05-27] MEDS: DOCUSATE SODIUM 100 MG CAPSULE PO SCH ×2 (09:19→22:11)
[2018-05-27] MEDS: ROSUVASTATIN 20 MG TABLET PO SCH (09:19)
[2018-05-27] MEDS: OLMESARTAN 20 MG TABLET PO SCH (09:20)
[2018-05-27] MEDS: VENLAFAXINE XR 37.5 MG CAPSULE PO SCH (09:20)
[2018-05-27] MEDS: METOPROLOL SUCCINATE XL 25 MG TABLET PO SCH (09:20)
[2018-05-27] MEDS: FUROSEMIDE 20 MG TABLET PO SCH (09:20)
[2018-05-27] MEDS: PANTOPRAZOLE 40 MG TABLET PO SCH (09:20)
[2018-05-27] MEDS: CLOPIDOGREL 75 MG TABLET PO SCH (09:20)
[2018-05-27] MEDS: POTASSIUM CHLORIDE 20 MEQ TABLET PO SCH (09:20)
[2018-05-27] MEDS: ASPIRIN EC 81 MG TABLET PO SCH (09:21)
[2018-05-27] MEDS: FLUTICASONE/SALMETEROL 250-50 DISKUS 14 DOSE INH SCH ×2 (09:21→22:14)
[2018-05-27] MEDS: GABAPENTIN 600 MG TABLET PO SCH ×3 (09:21→22:09)
[2018-05-27] MEDS: LIDOCAINE 5% PATCH TRANSDERM SCH (09:22)
[2018-05-27] MEDS ORDERED: MAGNESIUM SULF RIDER 2 GM in PREMIX 1 EACH IV PRN (11:21)
[2018-05-27] MEDS ORDERED: MAGNESIUM SULF RIDER 4 GM in PREMIX 1 EACH IV PRN (11:21)
[2018-05-27] MEDS ORDERED: traZODone 50 MG TABLET PO SCH (21:00)
[2018-05-27] MEDS: ACETAMINOPHEN 325 MG TABLET PO PRN (22:15)
[2018-05-28] MEDS: ALBUTEROL/IPRATROPIUM 3 ML NEB RESP TX SCH ×3 (01:26→13:14)
[2018-05-28] MEDS: CLORAZEPATE 7.5 MG TABLET PO PRN (02:33)
[2018-05-28 05:13] LABS: Basophils % 0.1 % (0.0-0.8); Hemoglobin 9.1 GM/DL (12.0-16.0); Immature Granulocytes % 2.6 %; Immature Granulocytes Absolute 0.27 #; Lymphocytes # 0.8 10*3/uL (1.4-4.0); Mean Corpuscular HGB Conc 31.4 GM/DL (32-36); Mean Corpuscular Hemoglobin 30 PG (27-34); Mean Corpuscular Volume 95.4 FL (87-102); Monocytes # 0.3 10*3/uL (0.11-0.8); Monocytes % 3.1 % (1.7-12.7); Neutrophils # 9.1 10*3/uL (1.4-7.4); Neutrophils % 86.2 % (38.7-73.9); Platelet Count 145 T/CUMM (130-400); Red Blood Count 3.04 MC/CUMM (3.8-5.5); Red Cell Distribution Width 14.5 % (9.3-17.3); White Blood Count 10.5 T/CUMM (4-12)
[2018-05-28 05:23] LABS: Calcium 8.9 MG/DL (8.5-10.1); Osmolality,Calculated 294.8 MOS/KG (273-304); Potassium 4.3 MMOL/L (3.5-5.1)
[2018-05-28] MEDS: methylPREDNISolone SOD SUC 40 MG/1 ML VIAL IV SCH (07:54)
[2018-05-28] MEDS: LEVOFLOXACIN INJ 250 MG in PREMIX 1 EACH IV SCH (08:12)
[2018-05-28] MEDS: DULoxetine 30 MG CAPSULE PO SCH (08:50)
[2018-05-28] MEDS: GABAPENTIN 600 MG TABLET PO SCH (08:50)
[2018-05-28] MEDS: VENLAFAXINE XR 37.5 MG CAPSULE PO SCH (08:51)
[2018-05-28] MEDS: METOPROLOL SUCCINATE XL 25 MG TABLET PO SCH (08:51)
[2018-05-28] MEDS: DOCUSATE SODIUM 100 MG CAPSULE PO SCH (08:51)
[2018-05-28] MEDS: PANTOPRAZOLE 40 MG TABLET PO SCH (08:51)
[2018-05-28] MEDS: OLMESARTAN 20 MG TABLET PO SCH (08:53)
[2018-05-28] MEDS: ROSUVASTATIN 20 MG TABLET PO SCH (08:53)
[2018-05-28] MEDS: FUROSEMIDE 20 MG TABLET PO SCH (08:54)
[2018-05-28] MEDS: CLOPIDOGREL 75 MG TABLET PO SCH (08:54)
[2018-05-28] MEDS: POTASSIUM CHLORIDE 20 MEQ TABLET PO SCH (08:54)
[2018-05-28] MEDS: LIDOCAINE 5% PATCH TRANSDERM SCH (08:54)
[2018-05-28] MEDS: ASPIRIN EC 81 MG TABLET PO SCH (08:54)
[2018-05-28] MEDS: FLUTICASONE/SALMETEROL 250-50 DISKUS 14 DOSE INH SCH (09:09)
[2018-05-28 11:00] VITALS: BP 139/69
[2018-05-28] MEDS: ACETAMINOPHEN 325 MG TABLET PO PRN (13:36)
== END 2018-05-28 13:59 | disposition home health service (06) ==
LOC: EDUNIT# → EDBD → N.ED 22:38 → N.EDINP 22:38 → N.TELEN 05-26 13:30
PROVIDERS: ADMIT Family Medicine; ATTEND Family Medicine

== ENCOUNTER 2019-12-11 20:39 | Inpatient (IN) ==
[2019-12-11] MEDS ORDERED: FUROSEMIDE 100 MG/10 ML VIAL IV STA (21:39)
[2019-12-11] MEDS ORDERED: SODIUM CHLORIDE 0.9% 1,000 ML IV STA ×2 (21:39→22:34)
[2019-12-11] MEDS ORDERED: methylPREDNISolone SOD SUC 125 MG/2 ML VIAL IV STA (21:41)
[2019-12-11 21:51] LABS: Basophils % 0.1 % (0.0-0.8); Immature Granulocytes % 0.8 %; Immature Granulocytes Absolute 0.13 #; Lymphocytes # 1.1 10*3/uL (1.4-4.0); Lymphocytes % 6.8 % (21.3-54.2); Mean Corpuscular HGB Conc 31.3 GM/DL (32-36); Mean Corpuscular Volume 94.8 FL (87-102); Mean Platelet Volume 11.4 FL (9.6-12.0); Monocytes % 4.5 % (1.7-12.7); Neutrophils % 87.8 % (38.7-73.9); Platelet Count 130 T/CUMM (130-400); Red Blood Count 2.12 MC/CUMM (3.8-5.5); Red Cell Distribution Width 15.1 % (9.3-17.3); White Blood Count 16.1 T/CUMM (4-12)
[2019-12-11 22:03] LABS: Alanine Aminotransferase < 6 U/L (13-56); Albumin 2.7 G/DL (3.4-5.0); Alkaline Phosphatase 71 U/L (45-117); Aspartate Amino Transferase 14 U/L (0-37); Blood Urea Nitrogen 56 MG/DL (7-18); Calcium 8.6 MG/DL (8.5-10.1); Estimated Glom Filtration Rate 14 ML/MIN; Glucose 117 MG/DL (74-106); Total Protein 6.2 G/DL (6.4-8.3)
[2019-12-11 22:21] LABS: Hematocrit 20.1 VOL% (35.7-47.0); Hemoglobin 6.3 GM/DL (12.0-16.0)
[2019-12-11 22:49] LABS: ABG Base Excess -0.9 MMOL/L (-2.5-2.5); ABG HCO3 23.7 MMOL/L (20-26); ABG Oxygen Saturation 98.1 % (95-100); ABG PH 7.347 (7.35-7.45); ABG TCO2 23.7 MMOL/L (23-27)
[2019-12-11] MEDS ORDERED: ONDANSETRON 4 MG/2 ML VIAL IV PRN (23:14)
[2019-12-11] MEDS ORDERED: SODIUM CHLORIDE 0.9% 1,000 ML IV PRN (23:22)
[2019-12-11] MEDS ORDERED: LEVOFLOXACIN INJ 500 MG in PREMIX 1 EACH IV ONE (23:30)
[2019-12-12 00:18] LABS: INR 1.3; PT Patient Result 13.9 SECS (9.8-11.9)
[2019-12-12] MEDS ORDERED: PANTOPRAZOLE INJ 80 MG in SODIUM CHLORIDE 0.9% 100 ML IV ONE (00:44)
[2019-12-12] MEDS: SODIUM CHLORIDE 0.9% 1,000 ML IV SCH ×3 (03:04→19:26)
[2019-12-12] MEDS: PANTOPRAZOLE INJ 200 MG in SODIUM CHLORIDE 0.9% 250 ML IV SCH (03:31)
[2019-12-12 03:56] LABS: Anisocytosis 1+; Band Neutrophils 18 % (0-10); Hypersegmented Neutrophil Few; Lymphocytes 7 % (20-55); Macrocytosis 1+; Metamyelocytes 6 %; Myelocytes 2 %; Platelet Estimate Decreased; Segmented Neutrophils 63 % (50-85); Total Cells Counted 100
[2019-12-12 03:57] LABS: Polychromasia Few
[2019-12-12 06:14] LABS: Basophils % 0.1 % (0.0-0.8); Hematocrit 20.3 VOL% (35.7-47.0); Immature Granulocytes % 4.9 %; Immature Granulocytes Absolute 0.82 #; Lymphocytes # 0.7 10*3/uL (1.4-4.0); Lymphocytes % 3.9 % (21.3-54.2); Mean Corpuscular HGB Conc 31.5 GM/DL (32-36); Mean Corpuscular Volume 96.2 FL (87-102); Mean Platelet Volume 11.5 FL (9.6-12.0); Neutrophils % 90.1 % (38.7-73.9); Platelet Count 120 T/CUMM (130-400); Red Blood Count 2.11 MC/CUMM (3.8-5.5); Red Cell Distribution Width 15.4 % (9.3-17.3); White Blood Count 16.8 T/CUMM (4-12)
[2019-12-12 06:17] LABS: Hemoglobin 6.4 GM/DL (12.0-16.0)
[2019-12-12 06:31] LABS: Albumin 2.4 G/DL (3.4-5.0); Bilirubin,Total 0.7 MG/DL (0.2-1.0); Calcium 8.6 MG/DL (8.5-10.1); Osmolality,Calculated 297.5 MOS/KG (273-304); Total Protein 6.5 G/DL (6.4-8.3)
[2019-12-12 08:08] LABS: Band Neutrophils 36 % (0-10); Lymphocytes 6 % (20-55); Platelet Estimate Adequate; Segmented Neutrophils 58 % (50-85); Total Cells Counted 100
[2019-12-12 08:09] LABS: Anisocytosis 1+; Basophilic Stippling Slight; Ovalocytes Few; Poikilocytosis 1+
[2019-12-12 08:10] LABS: Burr Cells Few
[2019-12-12] MEDS ORDERED: SODIUM CHLORIDE 0.9% 1,000 ML IV PRN (08:14)
[2019-12-12] MEDS ORDERED: FUROSEMIDE 40 MG/4 ML VIAL IV ONE ×2 (08:16→13:18)
[2019-12-12] MEDS: METOPROLOL SUCCINATE XL 25 MG TABLET PO SCH (10:43)
[2019-12-12 11:37] LABS: Bacteria,Urine Occasional /HPF (Few); Bilirubin,Urine Negative (Negative); Blood, Urine Negative (Negative); Glucose,Urine (UA) Negative (Negative); Ketones,Urine Negative (Negative); Nitrite,Urine Negative (Negative); Protein,Urine Negative; RBC,Urine 1 /HPF (0-4); Squamous Epithelial Cell,Urine Occasional /HPF (0-10); Urine Appearance CLEAR (Clear); Urine Color Straw (Yellow); Urine Specific Gravity 1.009 (1.001-1.035); Urine Urobilinogen < 2.0 EU/DL (0.2-1.0); WBC,Urine 1 /HPF (0-6)
[2019-12-12 18:28] LABS: Hemoglobin 9.3 GM/DL (12.0-16.0)
[2019-12-13] MEDS: PANTOPRAZOLE INJ 200 MG in SODIUM CHLORIDE 0.9% 250 ML IV SCH (05:02)
[2019-12-13 05:46] LABS: Hematocrit 24.8 VOL% (35.7-47.0); Hemoglobin 8.1 GM/DL (12.0-16.0); Immature Granulocytes % 1.7 %; Immature Granulocytes Absolute 0.24 #; Lymphocytes # 0.8 10*3/uL (1.4-4.0); Lymphocytes % 5.5 % (21.3-54.2); Mean Corpuscular HGB Conc 32.7 GM/DL (32-36); Mean Corpuscular Volume 93.2 FL (87-102); Mean Platelet Volume 11.4 FL (9.6-12.0); Monocytes % 4.6 % (1.7-12.7); Neutrophils % 88.2 % (38.7-73.9); Platelet Count 117 T/CUMM (130-400); Red Blood Count 2.66 MC/CUMM (3.8-5.5); Red Cell Distribution Width 15.9 % (9.3-17.3); White Blood Count 13.7 T/CUMM (4-12)
[2019-12-13 05:57] LABS: Calcium 8.4 MG/DL (8.5-10.1); Osmolality,Calculated 302.8 MOS/KG (273-304)
[2019-12-13] MEDS: SODIUM CHLORIDE 0.9% 1,000 ML IV SCH ×3 (06:18→15:19)
[2019-12-13 06:22] LABS: Anisocytosis 1+; Band Neutrophils 25 % (0-10); Basophilic Stippling Slight; Lymphocytes 5 % (20-55); Platelet Estimate Adequate; Segmented Neutrophils 66 % (50-85); Total Cells Counted 100
[2019-12-13 06:28] LABS: Macrocytosis Slight; Spherocytes Few
[2019-12-13] MEDS ORDERED: SODIUM CHLORIDE 0.9% 1,000 ML IV PRN (07:56)
[2019-12-13] MEDS ORDERED: FUROSEMIDE 40 MG/4 ML VIAL IV ONE (07:58)
[2019-12-13] MEDS: FUROSEMIDE 20 MG TABLET PO SCH (09:24)
[2019-12-13] MEDS: ROSUVASTATIN 20 MG TABLET PO SCH (09:24)
[2019-12-13] MEDS: METOPROLOL SUCCINATE XL 25 MG TABLET PO SCH (09:24)
[2019-12-13] MEDS ORDERED: BISACODYL 10 MG SUPP RECTAL ONE (10:00)
[2019-12-13 10:37] LABS: Basophils % 0.1 % (0.0-0.8); Hematocrit 27.7 VOL% (35.7-47.0); Hemoglobin 8.6 GM/DL (12.0-16.0); Immature Granulocytes % 1.8 %; Immature Granulocytes Absolute 0.24 #; Lymphocytes # 1.1 10*3/uL (1.4-4.0); Lymphocytes % 8.3 % (21.3-54.2); Mean Corpuscular Volume 93.9 FL (87-102); Mean Platelet Volume 10.6 FL (9.6-12.0); Neutrophils % 85.8 % (38.7-73.9); Platelet Count 127 T/CUMM (130-400); Red Blood Count 2.95 MC/CUMM (3.8-5.5); Red Cell Distribution Width 15.9 % (9.3-17.3); White Blood Count 13.4 T/CUMM (4-12)
[2019-12-13 11:04] LABS: Alanine Aminotransferase < 9 U/L (13-56); Albumin 2.5 G/DL (3.4-5.0); Alkaline Phosphatase 74 U/L (45-117); Aspartate Amino Transferase 18 U/L (0-37); Bilirubin,Indirect 0.6 MG/DL (0.0-1.0); Total Protein 6.8 G/DL (6.4-8.3)
[2019-12-13] MEDS: ACETAMINOPHEN 325 MG TABLET PO PRN (17:09)
[2019-12-13] MEDS: LEVOFLOXACIN INJ 250 MG in PREMIX 1 EACH IV SCH (21:40)
[2019-12-14] MEDS: ACETAMINOPHEN 325 MG TABLET PO PRN (04:30)
[2019-12-14 04:57] LABS: Basophils % 0.1 % (0.0-0.8); Eosinophils # 0.2 10*3/uL (0.0-0.87); Eosinophils % 1.4 % (0.00-10.9); Hematocrit 25.9 VOL% (35.7-47.0); Hemoglobin 8.2 GM/DL (12.0-16.0); Immature Granulocytes % 1.1 %; Immature Granulocytes Absolute 0.12 #; Lymphocytes # 1.7 10*3/uL (1.4-4.0); Lymphocytes % 16.3 % (21.3-54.2); Mean Corpuscular HGB Conc 31.7 GM/DL (32-36); Mean Corpuscular Volume 94.2 FL (87-102); Mean Platelet Volume 10.6 FL (9.6-12.0); Monocytes % 4.4 % (1.7-12.7); Neutrophils % 76.7 % (38.7-73.9); Platelet Count 127 T/CUMM (130-400); Red Blood Count 2.75 MC/CUMM (3.8-5.5); Red Cell Distribution Width 15.7 % (9.3-17.3); White Blood Count 10.6 T/CUMM (4-12)
[2019-12-14 05:28] LABS: Calcium 8.2 MG/DL (8.5-10.1); Osmolality,Calculated 298.7 MOS/KG (273-304)
[2019-12-14] MEDS: SODIUM CHLORIDE 0.9% 1,000 ML IV SCH ×2 (05:53→17:21)
[2019-12-14] MEDS: PANTOPRAZOLE INJ 200 MG in SODIUM CHLORIDE 0.9% 250 ML IV SCH (05:54)
[2019-12-14] MEDS ORDERED: LIDOCAINE 2% 5 ML VIAL ONE (09:00)
[2019-12-14] MEDS ORDERED: propofoL 200 MG/20 ML VIAL IV ONE (09:00)
[2019-12-14] MEDS ORDERED: POTASSIUM CHLORIDE RIDER 10 MEQ in PREMIX 1 EACH IV ONE (09:04)
[2019-12-14] MEDS ORDERED: MAGNESIUM SULF RIDER 2 GM in PREMIX 1 EACH IV ONE (09:07)
[2019-12-14] MEDS ORDERED: SODIUM CHLORIDE 0.9% 1,000 ML IV PRN (09:14)
[2019-12-14] MEDS ORDERED: FUROSEMIDE 40 MG/4 ML VIAL IV ONE (13:50)
[2019-12-14] MEDS: ROSUVASTATIN 20 MG TABLET PO SCH (15:54)
[2019-12-14] MEDS: METOPROLOL SUCCINATE XL 25 MG TABLET PO SCH (15:54)
[2019-12-14] MEDS: FUROSEMIDE 20 MG TABLET PO SCH (15:55)
[2019-12-14] MEDS ORDERED: POTASSIUM CHLORIDE 20 MEQ TABLET PO ONE (16:05)
[2019-12-14] MEDS: DULoxetine 30 MG CAPSULE PO SCH (21:09)
[2019-12-15 06:40] LABS: Basophils % 0.2 % (0.0-0.8); Eosinophils # 0.2 10*3/uL (0.0-0.87); Eosinophils % 2.4 % (0.00-10.9); Hematocrit 31.7 VOL% (35.7-47.0); Hemoglobin 10.4 GM/DL (12.0-16.0); Immature Granulocytes % 1.1 %; Immature Granulocytes Absolute 0.09 #; Lymphocytes # 1.4 10*3/uL (1.4-4.0); Lymphocytes % 17.5 % (21.3-54.2); Mean Corpuscular HGB Conc 32.8 GM/DL (32-36); Mean Corpuscular Volume 92.7 FL (87-102); Mean Platelet Volume 10.1 FL (9.6-12.0); Monocytes % 8.4 % (1.7-12.7); Neutrophils % 70.4 % (38.7-73.9); Platelet Count 123 T/CUMM (130-400); Red Blood Count 3.42 MC/CUMM (3.8-5.5); Red Cell Distribution Width 14.9 % (9.3-17.3)
[2019-12-15 07:08] LABS: Osmolality,Calculated 285.3 MOS/KG (273-304)
[2019-12-15] MEDS: DULoxetine 30 MG CAPSULE PO SCH ×2 (09:53→21:44)
[2019-12-15] MEDS: METOPROLOL SUCCINATE XL 25 MG TABLET PO SCH (09:53)
[2019-12-15] MEDS: FUROSEMIDE 20 MG TABLET PO SCH (09:53)
[2019-12-15] MEDS: ROSUVASTATIN 20 MG TABLET PO SCH (09:53)
[2019-12-15] MEDS ORDERED: MAGNESIUM SULF RIDER 4 GM in PREMIX 1 EACH IV PRN (11:11)
[2019-12-15] MEDS ORDERED: FUROSEMIDE 40 MG/4 ML VIAL IV ONE (11:18)
[2019-12-15] MEDS ORDERED: MAGNESIUM SULF RIDER 2 GM in PREMIX 1 EACH IV ONE (12:00)
[2019-12-15] MEDS ORDERED: POTASSIUM CHLORIDE 20 MEQ PACK PO ONE (13:00)
[2019-12-15] MEDS: SODIUM CHLORIDE 0.9% 1,000 ML IV SCH (13:03)
[2019-12-15] MEDS: ALBUTEROL 0.63 MG/3 ML NEB RESP TX SCH ×2 (13:17→19:05)
[2019-12-15 16:18] LABS: Calcium 9.4 MG/DL (8.5-10.1); Osmolality,Calculated 284.4 MOS/KG (273-304)
[2019-12-15] MEDS: POTASSIUM CHLORIDE 20 MEQ TABLET PO PRN ×3 (17:16→21:41)
[2019-12-15] MEDS: PANTOPRAZOLE 40 MG VIAL IV SCH (21:42)
[2019-12-15] MEDS: ACETAMINOPHEN 325 MG TABLET PO PRN (21:50)
[2019-12-15] MEDS: LEVOFLOXACIN INJ 250 MG in PREMIX 1 EACH IV SCH (21:57)
[2019-12-16] MEDS: traZODone 50 MG TABLET PO PRN ×2 (01:44→22:46)
[2019-12-16] MEDS: ALBUTEROL 0.63 MG/3 ML NEB RESP TX SCH ×4 (01:56→19:01)
[2019-12-16] MEDS: POTASSIUM CHLORIDE 20 MEQ TABLET PO PRN (02:47)
[2019-12-16 06:53] LABS: Basophils % 0.2 % (0.0-0.8); Eosinophils # 0.2 10*3/uL (0.0-0.87); Eosinophils % 2.7 % (0.00-10.9); Hematocrit 34.3 VOL% (35.7-47.0); Hemoglobin 11.3 GM/DL (12.0-16.0); Immature Granulocytes % 0.7 %; Immature Granulocytes Absolute 0.06 #; Lymphocytes # 1.8 10*3/uL (1.4-4.0); Lymphocytes % 21.5 % (21.3-54.2); Mean Corpuscular HGB Conc 32.9 GM/DL (32-36); Monocytes % 9.1 % (1.7-12.7); Neutrophils % 65.8 % (38.7-73.9); Platelet Count 140 T/CUMM (130-400); Red Blood Count 3.77 MC/CUMM (3.8-5.5); Red Cell Distribution Width 14.5 % (9.3-17.3); White Blood Count 8.4 T/CUMM (4-12)
[2019-12-16 07:08] LABS: Calcium 9.3 MG/DL (8.5-10.1); Osmolality,Calculated 279.5 MOS/KG (273-304)
[2019-12-16] MEDS: GABAPENTIN 600 MG TABLET PO SCH ×3 (09:06→21:31)
[2019-12-16] MEDS: ROSUVASTATIN 20 MG TABLET PO SCH (09:06)
[2019-12-16] MEDS: DULoxetine 30 MG CAPSULE PO SCH ×2 (09:06→21:30)
[2019-12-16] MEDS: METOPROLOL SUCCINATE XL 25 MG TABLET PO SCH (09:07)
[2019-12-16] MEDS: PANTOPRAZOLE 40 MG VIAL IV SCH ×2 (09:07→21:31)
[2019-12-16] MEDS: FUROSEMIDE 20 MG TABLET PO SCH (09:07)
[2019-12-16] MEDS ORDERED: BISACODYL 5 MG TABLET PO ONE (10:00)
[2019-12-16] MEDS: SODIUM CHLORIDE 0.9% 1,000 ML IV SCH (10:00)
[2019-12-16] MEDS ORDERED: POLYETHYLENE GLYCOL POWDER 255 GM BOTTLE PO ONE (11:00)
[2019-12-17] MEDS: ALBUTEROL 0.63 MG/3 ML NEB RESP TX SCH ×5 (00:05→19:30)
[2019-12-17 05:58] LABS: Basophils % 0.2 % (0.0-0.8); Eosinophils # 0.5 10*3/uL (0.0-0.87); Eosinophils % 6.1 % (0.00-10.9); Hematocrit 33.8 VOL% (35.7-47.0); Immature Granulocytes Absolute 0.09 #; Lymphocytes # 1.9 10*3/uL (1.4-4.0); Lymphocytes % 21.8 % (21.3-54.2); Mean Corpuscular HGB Conc 32.5 GM/DL (32-36); Mean Corpuscular Volume 91.8 FL (87-102); Mean Platelet Volume 10.4 FL (9.6-12.0); Monocytes % 9.2 % (1.7-12.7); Neutrophils % 61.7 % (38.7-73.9); Platelet Count 138 T/CUMM (130-400); Red Blood Count 3.68 MC/CUMM (3.8-5.5); Red Cell Distribution Width 14.2 % (9.3-17.3); White Blood Count 8.7 T/CUMM (4-12)
[2019-12-17] MEDS ORDERED: MAGNESIUM CITRATE 300 ML BOTTLE PO ONE (06:00)
[2019-12-17] MEDS: SODIUM CHLORIDE 0.9% 1,000 ML IV SCH (06:04)
[2019-12-17 06:09] LABS: PT Patient Result 10.9 SECS (9.8-11.9)
[2019-12-17 06:21] LABS: Platelet Estimate Normal
[2019-12-17 06:24] LABS: Calcium 8.8 MG/DL (8.5-10.1); Osmolality,Calculated 273.8 MOS/KG (273-304)
[2019-12-17] MEDS: POTASSIUM CHLORIDE 20 MEQ TABLET PO PRN ×2 (07:00→08:19)
[2019-12-17] MEDS: MAGNESIUM SULF RIDER 2 GM in PREMIX 1 EACH IV PRN (07:05)
[2019-12-17] MEDS ORDERED: LACTATED RINGERS 1,000 ML IV SCH (08:00)
[2019-12-17] MEDS: DULoxetine 30 MG CAPSULE PO SCH ×2 (08:18→22:14)
[2019-12-17] MEDS: METOPROLOL SUCCINATE XL 25 MG TABLET PO SCH (08:18)
[2019-12-17] MEDS: GABAPENTIN 600 MG TABLET PO SCH ×3 (08:18→22:15)
[2019-12-17] MEDS: FUROSEMIDE 20 MG TABLET PO SCH (08:18)
[2019-12-17] MEDS: ROSUVASTATIN 20 MG TABLET PO SCH (08:18)
[2019-12-17] MEDS: PANTOPRAZOLE 40 MG VIAL IV SCH ×2 (08:19→22:15)
[2019-12-17] MEDS: POTASSIUM CHLORIDE 20 MEQ TABLET PO SCH (08:24)
[2019-12-17] MEDS ORDERED: LIDOCAINE 2% 5 ML VIAL ONE (09:00)
[2019-12-17] MEDS ORDERED: propofoL 200 MG/20 ML VIAL IV ONE (09:00)
[2019-12-17] MEDS: LEVOFLOXACIN INJ 250 MG in PREMIX 1 EACH IV SCH (22:16)
[2019-12-17] MEDS: traZODone 50 MG TABLET PO PRN (22:38)
[2019-12-18] MEDS: ALBUTEROL 0.63 MG/3 ML NEB RESP TX SCH ×2 (00:10→07:25)
[2019-12-18] MEDS: SODIUM CHLORIDE 0.9% 1,000 ML IV SCH (04:56)
[2019-12-18 05:37] LABS: Basophils % 0.5 % (0.0-0.8); Eosinophils # 0.4 10*3/uL (0.0-0.87); Eosinophils % 7.5 % (0.00-10.9); Hematocrit 30.9 VOL% (35.7-47.0); Hemoglobin 9.8 GM/DL (12.0-16.0); Immature Granulocytes % 0.9 %; Immature Granulocytes Absolute 0.05 #; Lymphocytes # 1.8 10*3/uL (1.4-4.0); Lymphocytes % 32.1 % (21.3-54.2); Mean Corpuscular HGB Conc 31.7 GM/DL (32-36); Mean Corpuscular Volume 93.4 FL (87-102); Mean Platelet Volume 10.2 FL (9.6-12.0); Monocytes % 11.5 % (1.7-12.7); Neutrophils % 47.5 % (38.7-73.9); Platelet Count 116 T/CUMM (130-400); Red Blood Count 3.31 MC/CUMM (3.8-5.5); Red Cell Distribution Width 13.9 % (9.3-17.3); White Blood Count 5.7 T/CUMM (4-12)
[2019-12-18 05:54] LABS: Calcium 8.6 MG/DL (8.5-10.1); Osmolality,Calculated 282.3 MOS/KG (273-304)
[2019-12-18 05:59] LABS: Hypochromasia 1+; Microcytosis 1+; Ovalocytes Slight; Platelet Estimate Decreased
[2019-12-18] MEDS: MAGNESIUM SULF RIDER 2 GM in PREMIX 1 EACH IV PRN (07:25)
[2019-12-18] MEDS: POTASSIUM CHLORIDE 20 MEQ TABLET PO PRN (07:25)
[2019-12-18 07:59] VITALS: BP 101/50
[2019-12-18] MEDS: PANTOPRAZOLE 40 MG VIAL IV SCH (09:23)
[2019-12-18] MEDS: ROSUVASTATIN 20 MG TABLET PO SCH (09:25)
[2019-12-18] MEDS: GABAPENTIN 600 MG TABLET PO SCH (09:25)
[2019-12-18] MEDS: DULoxetine 30 MG CAPSULE PO SCH (09:25)
[2019-12-18] MEDS: POTASSIUM CHLORIDE 20 MEQ TABLET PO SCH (09:26)
[2019-12-18] MEDS: FUROSEMIDE 20 MG TABLET PO SCH (09:26)
[2019-12-18] MEDS: METOPROLOL SUCCINATE XL 25 MG TABLET PO SCH (09:26)
== END 2019-12-18 11:22 | disposition home or self-care (01) | DRG 871 ==
LOC: EDUNIT# → EDBD → N.ED 20:39 → N.EDINP 23:13 → N.TELES 12-12 01:57
PROVIDERS: ADMIT Family Medicine; ATTEND Family Medicine

== ENCOUNTER 2020-07-28 06:07 | Observation (INO) ==
[2020-07-28] MEDS ORDERED: SODIUM CHLORIDE 0.9% 1,000 ML IV STA (06:11)
[2020-07-28 06:36] LABS: PT Patient Result 11.2 SECS (10.5-12.0); Partial Thromboplastin Time 23.8 SECS (23.9-33.8)
[2020-07-28 06:53] LABS: Bilirubin,Urine Negative (Negative); Blood, Urine Negative (Negative); Glucose,Urine (UA) Negative (Negative); Ketones,Urine Negative (Negative); Mucus,Urine Occasional /LPF (Occasional); Nitrite,Urine Negative (Negative); Protein,Urine Negative; Squamous Epithelial Cell,Urine Few /HPF (0-10); Urine Appearance Slightly Hazy (Clear); Urine Color Yellow (Yellow); Urine Specific Gravity 1.014 (1.001-1.035); Urine Urobilinogen < 2.0 EU/DL (0.2-1.0)
[2020-07-28 06:57] LABS: Barbiturates Screen,Urine Negative (Negative); Benzodiazepines Screen,Urine Positive (Negative); Cannabinoid Screen,Urine Negative (Negative); Opiate Screen,Urine Negative (Negative); Phencyclidine Screen,Urine Negative (Negative)
[2020-07-28 07:00] LABS: Alanine Aminotransferase < 9 U/L (13-56); Albumin 3.1 G/DL (3.4-5.0); Alkaline Phosphatase 76 U/L (45-117); Aspartate Amino Transferase 9 U/L (0-37); Blood Urea Nitrogen 25 MG/DL (7-18); Calcium 9.8 MG/DL (8.5-10.1); Carbon Dioxide 31 MMOL/L (21-32); Estimated Glom Filtration Rate 47 ML/MIN; Glucose 122 MG/DL (74-106); Osmolality,Calculated 279.7 MOS/KG (273-304); Potassium 3.9 MMOL/L (3.5-5.1); Sodium 138 MMOL/L (136-145); Total Protein 7.2 G/DL (6.4-8.2)
[2020-07-28] MEDS ORDERED: cefTRIAXone 1,000 MG in SODIUM CHLORIDE 0.9% 100 ML IV STA (07:52)
[2020-07-28 08:16] LABS: Basophils % 0.1 % (0.0-0.8); Eosinophils # 0.1 10*3/uL (0.0-0.87); Eosinophils % 0.9 % (0.00-10.9); Hematocrit 34.1 VOL% (35.7-47.0); Hemoglobin 10.9 GM/DL (12.0-16.0); Immature Granulocytes % 0.3 %; Immature Granulocytes Absolute 0.03 #; Lymphocytes # 1.5 10*3/uL (1.4-4.0); Lymphocytes % 14.4 % (21.3-54.2); Mean Corpuscular Volume 93.4 FL (87-102); Monocytes % 5.2 % (1.7-12.7); Neutrophils % 79.1 % (38.7-73.9); Platelet Count 140 T/CUMM (130-400); Red Blood Count 3.65 MC/CUMM (3.8-5.5); Red Cell Distribution Width 14.5 % (9.3-17.3); White Blood Count 10.6 T/CUMM (4-12)
[2020-07-28] MEDS ORDERED: ONDANSETRON 4 MG/2 ML VIAL IV PRN (15:17)
[2020-07-28] MEDS ORDERED: INSULIN LISPRO 100 UNIT/ML SUBCUT SCH (15:17)
[2020-07-28] MEDS ORDERED: GLUCAGON 1 MG VIAL IM PRN (15:17)
[2020-07-28] MEDS ORDERED: DEXTROSE 50% 25 GM/50 ML VIAL IV PRN (15:17)
[2020-07-28] MEDS ORDERED: ACETAMINOPHEN 325 MG TABLET PO PRN (15:17)
[2020-07-28] MEDS: SODIUM CHLORIDE 0.9% 1,000 ML IV SCH ×2 (18:04→23:46)
[2020-07-28] MEDS ORDERED: traZODone 50 MG TABLET PO PRN (18:51)
[2020-07-28] MEDS ORDERED: BISACODYL 5 MG TABLET PO PRN (18:51)
[2020-07-28] MEDS ORDERED: ALBUTEROL 2.5 MG/3 ML NEB RESP TX PRN (19:12)
[2020-07-28] MEDS ORDERED: traMADol 50 MG TABLET PO PRN (19:17)
[2020-07-28] MEDS ORDERED: CLORAZEPATE 3.75 MG TABLET PO PRN (19:18)
[2020-07-28] MEDS: FLUTICASONE/SALMETEROL 250-50 DISKUS 14 DOSE INH SCH (20:35)
[2020-07-28] MEDS: DOCUSATE SODIUM 100 MG CAPSULE PO SCH (20:35)
[2020-07-28] MEDS: APIXABAN 2.5 MG TABLET PO SCH (20:35)
[2020-07-28] MEDS: GABAPENTIN 300 MG CAPSULE PO SCH (20:35)
[2020-07-28] MEDS: ARIPiprazole 2 MG TABLET PO SCH (20:35)
[2020-07-29] MEDS: SODIUM CHLORIDE 0.9% 1,000 ML IV SCH ×2 (08:32→16:53)
[2020-07-29] MEDS: DOCUSATE SODIUM 100 MG CAPSULE PO SCH ×2 (10:12→21:19)
[2020-07-29] MEDS: FLUTICASONE/SALMETEROL 250-50 DISKUS 14 DOSE INH SCH ×2 (10:12→21:17)
[2020-07-29] MEDS: ROSUVASTATIN 20 MG TABLET PO SCH (10:13)
[2020-07-29] MEDS: POTASSIUM CHLORIDE 20 MEQ TABLET PO SCH (10:13)
[2020-07-29] MEDS: DULoxetine 30 MG CAPSULE PO SCH (10:13)
[2020-07-29] MEDS: APIXABAN 2.5 MG TABLET PO SCH ×2 (10:13→21:19)
[2020-07-29] MEDS: FERROUS SULFATE 325 MG TABLET PO SCH (10:13)
[2020-07-29] MEDS: FUROSEMIDE 20 MG TABLET PO SCH (10:14)
[2020-07-29] MEDS: GABAPENTIN 300 MG CAPSULE PO SCH ×2 (10:14→21:17)
[2020-07-29] MEDS: PANTOPRAZOLE 40 MG TABLET PO SCH (10:15)
[2020-07-29] MEDS: METOPROLOL SUCCINATE XL 25 MG TABLET PO SCH (10:15)
[2020-07-29] MEDS: MAGNESIUM CHLORIDE 64 MG TABLET PO SCH (10:15)
[2020-07-29] MEDS: LIDOCAINE 5% PATCH TRANSDERM SCH (10:26)
[2020-07-29] MEDS: ARIPiprazole 2 MG TABLET PO SCH (21:19)
[2020-07-30] MEDS: SODIUM CHLORIDE 0.9% 1,000 ML IV SCH ×3 (00:11→15:17)
[2020-07-30] MEDS: FLUTICASONE/SALMETEROL 250-50 DISKUS 14 DOSE INH SCH (08:32)
[2020-07-30] MEDS: DULoxetine 30 MG CAPSULE PO SCH (08:33)
[2020-07-30] MEDS: ROSUVASTATIN 20 MG TABLET PO SCH (08:33)
[2020-07-30] MEDS: DOCUSATE SODIUM 100 MG CAPSULE PO SCH (08:33)
[2020-07-30] MEDS: FUROSEMIDE 20 MG TABLET PO SCH (08:34)
[2020-07-30] MEDS: POTASSIUM CHLORIDE 20 MEQ TABLET PO SCH (08:34)
[2020-07-30] MEDS: FERROUS SULFATE 325 MG TABLET PO SCH (08:34)
[2020-07-30] MEDS: APIXABAN 2.5 MG TABLET PO SCH (08:34)
[2020-07-30] MEDS: LIDOCAINE 5% PATCH TRANSDERM SCH (08:35)
[2020-07-30] MEDS: PANTOPRAZOLE 40 MG TABLET PO SCH (08:35)
[2020-07-30] MEDS: GABAPENTIN 300 MG CAPSULE PO SCH (08:35)
[2020-07-30] MEDS: METOPROLOL SUCCINATE XL 25 MG TABLET PO SCH (08:36)
[2020-07-30] MEDS: MAGNESIUM CHLORIDE 64 MG TABLET PO SCH (08:36)
[2020-07-30 10:45] LABS: Basophils % 0.2 % (0.0-0.8); Eosinophils # 0.1 10*3/uL (0.0-0.87); Eosinophils % 2.5 % (0.00-10.9); Hematocrit 28.9 VOL% (35.7-47.0); Immature Granulocytes % 0.4 %; Immature Granulocytes Absolute 0.02 #; Lymphocytes # 1.1 10*3/uL (1.4-4.0); Lymphocytes % 19.5 % (21.3-54.2); Mean Corpuscular HGB Conc 30.4 GM/DL (32-36); Mean Corpuscular Volume 96.3 FL (87-102); Mean Platelet Volume 9.7 FL (9.6-12.0); Monocytes % 6.9 % (1.7-12.7); Neutrophils % 70.5 % (38.7-73.9); Platelet Count 134 T/CUMM (130-400); Red Cell Distribution Width 14.5 % (9.3-17.3)
[2020-07-30 10:52] LABS: White Blood Count 5.7 T/CUMM (4-12)
[2020-07-30 10:53] LABS: Hemoglobin 8.8 GM/DL (12.0-16.0)
[2020-07-30] MEDS ORDERED: cefTRIAXone 1,000 MG in SODIUM CHLORIDE 0.9% 100 ML IV ONE (10:56)
[2020-07-30 10:59] LABS: Calcium 8.3 MG/DL (8.5-10.1); Osmolality,Calculated 288.6 MOS/KG (273-304); Potassium 3.2 MMOL/L (3.5-5.1)
[2020-07-30 16:52] VITALS: BP 157/80
== END 2020-07-30 17:44 | disposition home or self-care (01) ==
LOC: EDUNIT# → EDBD → N.ED 06:07 → N.EDINP 06:07 → N.3E 15:21
PROVIDERS: ADMIT Family Medicine; ATTEND Family Medicine

== ENCOUNTER 2021-07-18 18:44 | Observation (INO) ==
[2021-07-18 19:14] LABS: Basophils % 0.2 % (0.0-0.8); Hematocrit 30.7 VOL% (35.7-47.0); Hemoglobin 9.6 GM/DL (12.0-16.0); Immature Granulocytes % 0.7 %; Immature Granulocytes Absolute 0.07 #; Lymphocytes # 1.7 10*3/uL (1.4-4.0); Lymphocytes % 17.4 % (21.3-54.2); Mean Corpuscular HGB Conc 31.3 GM/DL (32-36); Mean Corpuscular Volume 96.5 FL (87-102); Mean Platelet Volume 9.6 FL (9.6-12.0); Monocytes # 0.5 10*3/uL (0.11-0.8); Monocytes % 5.3 % (1.7-12.7); Neutrophils % 76.4 % (38.7-73.9); Platelet Count 147 T/CUMM (130-400); Red Blood Count 3.18 MC/CUMM (3.8-5.5); Red Cell Distribution Width 14.7 % (9.3-17.3); White Blood Count 9.8 T/CUMM (4-12)
[2021-07-18 19:24] LABS: INR 0.9; PT Patient Result 10.3 SECS (10.5-12.0); Partial Thromboplastin Time 25.1 SECS (23.8-32.1)
[2021-07-18 19:43] LABS: Alanine Aminotransferase 12 U/L (13-56); Albumin 2.9 G/DL (3.4-5.0); Alkaline Phosphatase 87 U/L (45-117); Aspartate Amino Transferase 15 U/L (0-37); Bilirubin,Total < 0.39 MG/DL (0.20-1.00); Blood Urea Nitrogen 31 MG/DL (7-18); Calcium 9.6 MG/DL (8.5-10.1); Carbon Dioxide 30 MMOL/L (21-32); Chloride 102 MMOL/L (98-107); Glucose 112 MG/DL (74-106); Osmolality,Calculated 280.8 MOS/KG (273-304); Potassium 4.3 MMOL/L (3.5-5.1); Sodium 137 MMOL/L (136-145); Total Protein 6.8 G/DL (6.4-8.2)
[2021-07-18 19:59] LABS: Allen Test Positive
[2021-07-18 20:00] LABS: ABG Base Excess 4.2 MMOL/L (-2.5-2.5); ABG HCO3 28.1 MMOL/L (20-26); ABG Oxygen Saturation 93.2 % (95-100); ABG PCO2 50.2 MM HG (35-48); ABG PH 7.386 (7.35-7.45); ABG PO2 71.6 MM HG (80-95); ABG TCO2 27.6 MMOL/L (23-27)
[2021-07-18] MEDS ORDERED: LEVOFLOXACIN INJ 500 MG/100 ML PREMIX IV ONE (20:19)
[2021-07-18] MEDS ORDERED: ALBUTEROL/IPRATROPIUM 3 ML NEB RESP TX STA (20:19)
[2021-07-18] MEDS ORDERED: methylPREDNISolone SOD SUC 125 MG/2 ML VIAL IV STA (20:19)
[2021-07-18] MEDS ORDERED: ACETAMINOPHEN 325 MG TABLET PO PRN (20:27)
[2021-07-18] MEDS ORDERED: ONDANSETRON 4 MG/2 ML VIAL IV PRN (20:27)
[2021-07-18] MEDS: SODIUM CHLORIDE 0.9% 1,000 ML IV SCH (20:36)
[2021-07-18] MEDS ORDERED: ALBUTEROL/IPRATROPIUM 3 ML NEB RESP TX PRN (22:51)
[2021-07-18] MEDS ORDERED: ROSUVASTATIN 20 MG TABLET PO SCH (22:51)
[2021-07-19 00:09] LABS: Bacteria,Urine Occasional /HPF (Few); RBC,Urine 1 /HPF (0-4); Squamous Epithelial Cell,Urine Occasional /HPF (0-10)
[2021-07-19 00:17] LABS: Bilirubin,Urine Negative (Negative); Blood, Urine Trace mg/dL (Negative); Glucose,Urine (UA) Negative (Negative); Ketones,Urine Negative (Negative); Nitrite,Urine Negative (Negative); Protein,Urine Negative (Negative); Urine Appearance Clear (Clear); Urine Color Yellow (Yellow); Urine Urobilinogen 0.2 eU/dL (<2.0); Urine pH 5.5 (4.5-8.0)
[2021-07-19] MEDS: methylPREDNISolone SOD SUC 40 MG/1 ML VIAL IV SCH ×2 (05:24→13:16)
[2021-07-19 05:37] LABS: Basophils % 0.1 % (0.0-0.8); Hematocrit 30.4 VOL% (35.7-47.0); Hemoglobin 9.6 GM/DL (12.0-16.0); Immature Granulocytes % 1.5 %; Immature Granulocytes Absolute 0.11 #; Lymphocytes # 0.7 10*3/uL (1.4-4.0); Lymphocytes % 9.3 % (21.3-54.2); Mean Corpuscular HGB Conc 31.6 GM/DL (32-36); Mean Corpuscular Volume 96.2 FL (87-102); Mean Platelet Volume 10.6 FL (9.6-12.0); Monocytes # 0.1 10*3/uL (0.11-0.8); Monocytes % 0.9 % (1.7-12.7); Neutrophils % 88.2 % (38.7-73.9); Platelet Count 154 T/CUMM (130-400); Red Blood Count 3.16 MC/CUMM (3.8-5.5); Red Cell Distribution Width 14.6 % (9.3-17.3); White Blood Count 7.5 T/CUMM (4-12)
[2021-07-19 05:59] LABS: Alanine Aminotransferase 12 U/L (13-56); Albumin 2.5 G/DL (3.4-5.0); Alkaline Phosphatase 88 U/L (45-117); Aspartate Amino Transferase 13 U/L (0-37); Bilirubin,Total < 0.39 MG/DL (0.20-1.00); Blood Urea Nitrogen 32 MG/DL (7-18); Calcium 9.1 MG/DL (8.5-10.1); Carbon Dioxide 28 MMOL/L (21-32); Chloride 107 MMOL/L (98-107); Glucose 194 MG/DL (74-106); Osmolality,Calculated 288.5 MOS/KG (273-304); Potassium 4.2 MMOL/L (3.5-5.1); Sodium 139 MMOL/L (136-145); Total Protein 6.9 G/DL (6.4-8.2)
[2021-07-19] MEDS: SODIUM CHLORIDE 0.9% 1,000 ML IV SCH ×2 (06:13→13:15)
[2021-07-19] MEDS: PANTOPRAZOLE 40 MG TABLET PO SCH (08:56)
[2021-07-19] MEDS ORDERED: METOPROLOL TARTRATE 25 MG TABLET PO SCH (09:00)
[2021-07-19] MEDS ORDERED: CLORAZEPATE 7.5 MG TABLET PO SCH ×2 (13:00→21:00)
[2021-07-19] MEDS ORDERED: ALBUTEROL 2.5 MG/3 ML NEB RESP TX PRN (19:10)
[2021-07-19] MEDS ORDERED: LEVOFLOXACIN INJ 250 MG/50 ML PREMIX IV SCH (21:00)
[2021-07-19] MEDS ORDERED: traZODone 50 MG TABLET PO SCH (21:00)
[2021-07-19] MEDS: FLUTICASONE/SALMETEROL 250-50 DISKUS 14 DOSE INH SCH (21:15)
[2021-07-19] MEDS: GABAPENTIN 300 MG CAPSULE PO SCH (21:15)
[2021-07-19] MEDS: APIXABAN 2.5 MG TABLET PO SCH (21:15)
[2021-07-20] MEDS: SODIUM CHLORIDE 0.9% 1,000 ML IV SCH ×2 (00:59→08:45)
[2021-07-20] MEDS: methylPREDNISolone SOD SUC 40 MG/1 ML VIAL IV SCH ×2 (01:39→14:10)
[2021-07-20 05:31] LABS: Basophils % 0.1 % (0.0-0.8); Hematocrit 27.9 VOL% (35.7-47.0); Hemoglobin 8.8 GM/DL (12.0-16.0); Immature Granulocytes % 2.3 %; Immature Granulocytes Absolute 0.16 #; Lymphocytes # 0.8 10*3/uL (1.4-4.0); Lymphocytes % 11.3 % (21.3-54.2); Mean Corpuscular HGB Conc 31.5 GM/DL (32-36); Mean Corpuscular Volume 96.9 FL (87-102); Mean Platelet Volume 10.4 FL (9.6-12.0); Monocytes # 0.2 10*3/uL (0.11-0.8); Neutrophils % 83.3 % (38.7-73.9); Platelet Count 146 T/CUMM (130-400); Red Blood Count 2.88 MC/CUMM (3.8-5.5); Red Cell Distribution Width 14.5 % (9.3-17.3); White Blood Count 7.1 T/CUMM (4-12)
[2021-07-20 05:44] LABS: Calcium 8.9 MG/DL (8.5-10.1); Osmolality,Calculated 291.1 MOS/KG (273-304); Potassium 3.7 MMOL/L (3.5-5.1)
[2021-07-20] MEDS: FLUTICASONE/SALMETEROL 250-50 DISKUS 14 DOSE INH SCH (08:53)
[2021-07-20] MEDS: APIXABAN 2.5 MG TABLET PO SCH (08:56)
[2021-07-20] MEDS: PANTOPRAZOLE 40 MG TABLET PO SCH (08:58)
[2021-07-20] MEDS ORDERED: FERROUS SULFATE 325 MG TABLET PO SCH (09:00)
[2021-07-20] MEDS ORDERED: METOPROLOL SUCCINATE XL 25 MG TABLET PO SCH (09:00)
[2021-07-20] MEDS ORDERED: DULoxetine 30 MG CAPSULE PO SCH (09:00)
[2021-07-20] MEDS ORDERED: ROSUVASTATIN 20 MG TABLET PO SCH (09:00)
[2021-07-20] MEDS ORDERED: FUROSEMIDE 20 MG TABLET PO SCH (09:00)
[2021-07-20] MEDS ORDERED: MAGNESIUM CHLORIDE 64 MG TABLET PO SCH (09:00)
[2021-07-20] MEDS ORDERED: POLYETHYLENE GLYCOL POWDER 17 GM PACK PO SCH (09:00)
[2021-07-20] MEDS ORDERED: POTASSIUM CHLORIDE 20 MEQ TABLET PO SCH (09:00)
[2021-07-20] MEDS ORDERED: LIDOCAINE 5% PATCH TRANSDERM SCH (09:00)
[2021-07-20] MEDS ORDERED: ALBUTEROL/IPRATROPIUM 3 ML NEB RESP TX SCH (11:00)
[2021-07-20 13:01] VITALS: BP 134/71
[2021-07-20] MEDS: GABAPENTIN 300 MG CAPSULE PO SCH (14:10)
== END 2021-07-20 14:56 | disposition home or self-care (01) ==
LOC: N.ED 18:44 → N.EDINP 18:44 → N.3E 07-19 00:55
PROVIDERS: ADMIT Family Medicine; ATTEND Family Medicine

== ENCOUNTER 2021-11-19 22:31 | Inpatient (IN) ==
[2021-11-19] MEDS ORDERED: ONDANSETRON 4 MG/2 ML VIAL IV STA (23:02)
[2021-11-19] MEDS ORDERED: FUROSEMIDE 100 MG/10 ML VIAL IV STA (23:02)
[2021-11-19] MEDS ORDERED: methylPREDNISolone SOD SUC 125 MG/2 ML VIAL IV STA (23:02)
[2021-11-19 23:12] LABS: Basophils % 0.2 % (0.0-0.8); Eosinophils # 0.1 10*3/uL (0.0-0.87); Eosinophils % 0.8 % (0.00-10.9); Hematocrit 31.7 VOL% (35.7-47.0); Immature Granulocytes % 0.3 %; Immature Granulocytes Absolute 0.02 #; Lymphocytes # 1.7 10*3/uL (1.4-4.0); Lymphocytes % 26.4 % (21.3-54.2); Mean Corpuscular HGB Conc 31.5 GM/DL (32-36); Mean Corpuscular Volume 95.8 FL (87-102); Mean Platelet Volume 10.6 FL (9.6-12.0); Monocytes # 0.5 10*3/uL (0.11-0.8); Monocytes % 8.3 % (1.7-12.7); Platelet Count 137 T/CUMM (130-400); Red Blood Count 3.31 MC/CUMM (3.8-5.5); Red Cell Distribution Width 14.3 % (9.3-17.3); White Blood Count 6.3 T/CUMM (4-12)
[2021-11-19] MEDS ORDERED: ALBUTEROL NEB SOLN 5 MG/ML 20 ML/BOTTLE CONT NEB SCH (23:30)
[2021-11-19 23:44] LABS: Albumin 3.1 G/DL (3.4-5.0); Bilirubin,Total 0.4 MG/DL (0.20-1.00); Calcium 9.8 MG/DL (8.5-10.1); Osmolality,Calculated 283.5 MOS/KG (273-304); Potassium 3.8 MMOL/L (3.5-5.1); Total Protein 6.8 G/DL (6.4-8.2)
[2021-11-19 23:48] LABS: ABG Base Excess 7.2 MMOL/L (-2.5-2.5); ABG HCO3 30.9 MMOL/L (20-26); ABG Oxygen Saturation 92.7 % (95-100); ABG PCO2 51.4 MM HG (35-48); ABG PH 7.414 (7.35-7.45); ABG PO2 67.5 MM HG (80-95); ABG TCO2 30.4 MMOL/L (23-27); Allen Test Positive
[2021-11-19 23:50] LABS: Bilirubin,Urine Negative (Negative); Blood, Urine Trace mg/dL (Negative); Glucose,Urine (UA) Negative (Negative); Ketones,Urine Negative (Negative); Nitrite,Urine Positive (Negative); Protein,Urine Trace mg/dL (Negative); Urine Appearance Slightly Hazy (Clear); Urine Color Yellow (Yellow); Urine Specific Gravity 1.015 (1.001-1.035); Urine Urobilinogen 0.2 eU/dL (<2.0)
[2021-11-19 23:55] LABS: Bacteria,Urine Occasional /HPF (Few); Mucus,Urine Occasional /LPF (Occasional); RBC,Urine 1 /HPF (0-4); Squamous Epithelial Cell,Urine Occasional /HPF (0-10)
[2021-11-20] MEDS ORDERED: ACETAMINOPHEN 325 MG TABLET PO PRN (00:32)
[2021-11-20] MEDS ORDERED: ONDANSETRON 4 MG/2 ML VIAL IV PRN (00:32)
[2021-11-20] MEDS: SODIUM CHLORIDE 0.9% 1,000 ML IV SCH ×2 (01:00→17:56)
[2021-11-20] MEDS ORDERED: ALBUTEROL/IPRATROPIUM 3 ML NEB RESP TX SCH (03:00)
[2021-11-20] MEDS: cefTRIAXone 1,000 MG in SODIUM CHLORIDE 0.9% 100 ML IV SCH (04:21)
[2021-11-20] MEDS: ALBUTEROL INHALER 18 GM INH SCH ×2 (04:28→13:19)
[2021-11-20 05:40] LABS: Basophils % 0.2 % (0.0-0.8); Hematocrit 29.2 VOL% (35.7-47.0); Hemoglobin 9.2 GM/DL (12.0-16.0); Immature Granulocytes % 0.4 %; Immature Granulocytes Absolute 0.02 #; Lymphocytes # 0.4 10*3/uL (1.4-4.0); Lymphocytes % 7.5 % (21.3-54.2); Mean Corpuscular HGB Conc 31.5 GM/DL (32-36); Mean Corpuscular Volume 96.1 FL (87-102); Mean Platelet Volume 10.7 FL (9.6-12.0); Monocytes # 0.1 10*3/uL (0.11-0.8); Monocytes % 1.3 % (1.7-12.7); Neutrophils % 90.6 % (38.7-73.9); Platelet Count 130 T/CUMM (130-400); Red Blood Count 3.04 MC/CUMM (3.8-5.5); Red Cell Distribution Width 14.1 % (9.3-17.3); White Blood Count 5.5 T/CUMM (4-12)
[2021-11-20 06:05] LABS: Alanine Aminotransferase 13 U/L (13-56); Albumin 3.1 G/DL (3.4-5.0); Alkaline Phosphatase 90 U/L (45-117); Aspartate Amino Transferase 18 U/L (0-37); Bilirubin,Total < 0.39 MG/DL (0.20-1.00); Blood Urea Nitrogen 31 MG/DL (7-18); Calcium 9.8 MG/DL (8.5-10.1); Carbon Dioxide 34 MMOL/L (21-32); Chloride 99 MMOL/L (98-107); Glucose 160 MG/DL (74-106); Osmolality,Calculated 284.7 MOS/KG (273-304); Potassium 3.4 MMOL/L (3.5-5.1); Sodium 138 MMOL/L (136-145); Total Protein 7.4 G/DL (6.4-8.2)
[2021-11-20 06:06] LABS: Band Neutrophils 1 % (0-10); Hypochromia Slight; Lymphocytes 7 % (20-55); Microcytosis Slight; Platelet Estimate Normal; Total Cells Counted 100
[2021-11-20] MEDS ORDERED: GABAPENTIN 300 MG CAPSULE PO PRN (06:31)
[2021-11-20] MEDS: methylPREDNISolone SOD SUC 40 MG/1 ML VIAL IV SCH ×2 (09:22→15:28)
[2021-11-20] MEDS: MAGNESIUM CHLORIDE 64 MG TABLET PO SCH (09:25)
[2021-11-20] MEDS: DULoxetine 30 MG CAPSULE PO SCH ×2 (09:25→21:25)
[2021-11-20] MEDS: POLYETHYLENE GLYCOL POWDER 17 GM PACK PO SCH (09:25)
[2021-11-20] MEDS: METOPROLOL SUCCINATE XL 25 MG TABLET PO SCH (09:25)
[2021-11-20] MEDS: PANTOPRAZOLE 40 MG VIAL IV SCH (09:25)
[2021-11-20] MEDS: APIXABAN 2.5 MG TABLET PO SCH ×2 (09:25→21:26)
[2021-11-20] MEDS: DOCUSATE SODIUM 100 MG CAPSULE PO SCH ×2 (09:25→21:25)
[2021-11-20] MEDS: FUROSEMIDE 20 MG TABLET PO SCH (09:26)
[2021-11-20] MEDS: POTASSIUM CHLORIDE 20 MEQ TABLET PO SCH (09:26)
[2021-11-20] MEDS: CLORAZEPATE 3.75 MG TABLET PO SCH ×2 (09:39→21:26)
[2021-11-20] MEDS: IPRATROPIUM 500 MCG/2.5 ML NEB RESP TX SCH ×3 (10:40→19:00)
[2021-11-20] MEDS: FLUTICASONE/SALMETEROL 250-50 DISKUS 14 DOSE INH SCH ×2 (11:05→23:17)
[2021-11-20] MEDS: LIDOCAINE 5% PATCH TRANSDERM SCH (18:14)
[2021-11-20] MEDS: ROSUVASTATIN 20 MG TABLET PO SCH (21:25)
[2021-11-20] MEDS: traZODone 50 MG TABLET PO SCH (21:26)
[2021-11-21] MEDS: methylPREDNISolone SOD SUC 40 MG/1 ML VIAL IV SCH ×4 (00:23→21:50)
[2021-11-21] MEDS: cefTRIAXone 1,000 MG in SODIUM CHLORIDE 0.9% 100 ML IV SCH (00:42)
[2021-11-21] MEDS: IPRATROPIUM 500 MCG/2.5 ML NEB RESP TX SCH ×4 (06:52→19:45)
[2021-11-21] MEDS: MAGNESIUM CHLORIDE 64 MG TABLET PO SCH (08:28)
[2021-11-21] MEDS: POTASSIUM CHLORIDE 20 MEQ TABLET PO SCH (08:28)
[2021-11-21] MEDS: METOPROLOL SUCCINATE XL 25 MG TABLET PO SCH (08:29)
[2021-11-21] MEDS: APIXABAN 2.5 MG TABLET PO SCH ×2 (08:29→21:50)
[2021-11-21] MEDS: FUROSEMIDE 20 MG TABLET PO SCH (08:29)
[2021-11-21] MEDS: DULoxetine 30 MG CAPSULE PO SCH ×2 (08:29→21:49)
[2021-11-21] MEDS: CLORAZEPATE 3.75 MG TABLET PO SCH ×2 (08:29→21:50)
[2021-11-21] MEDS: DOCUSATE SODIUM 100 MG CAPSULE PO SCH ×2 (08:29→21:48)
[2021-11-21] MEDS: FLUTICASONE/SALMETEROL 250-50 DISKUS 14 DOSE INH SCH ×2 (08:30→21:49)
[2021-11-21] MEDS: POLYETHYLENE GLYCOL POWDER 17 GM PACK PO SCH (08:30)
[2021-11-21] MEDS: PANTOPRAZOLE 40 MG VIAL IV SCH (08:31)
[2021-11-21] MEDS: LIDOCAINE 5% PATCH TRANSDERM SCH (08:32)
[2021-11-21] MEDS: SODIUM CHLORIDE 0.9% 1,000 ML IV SCH (08:32)
[2021-11-21] MEDS: ROSUVASTATIN 20 MG TABLET PO SCH (21:49)
[2021-11-21] MEDS: traZODone 50 MG TABLET PO SCH (21:50)
[2021-11-22] MEDS: SODIUM CHLORIDE 0.9% 1,000 ML IV SCH (04:33)
[2021-11-22] MEDS ORDERED: PANTOPRAZOLE 40 MG TABLET PO SCH (06:30)
[2021-11-22] MEDS: IPRATROPIUM 500 MCG/2.5 ML NEB RESP TX SCH ×2 (07:32→11:05)
[2021-11-22] MEDS ORDERED: POTASSIUM CHLORIDE 20 MEQ TABLET PO ONE (08:03)
[2021-11-22] MEDS: cefTRIAXone 1,000 MG in SODIUM CHLORIDE 0.9% 100 ML IV SCH (08:53)
[2021-11-22] MEDS: POTASSIUM CHLORIDE 20 MEQ TABLET PO SCH (08:54)
[2021-11-22] MEDS: methylPREDNISolone SOD SUC 40 MG/1 ML VIAL IV SCH (08:54)
[2021-11-22] MEDS: METOPROLOL SUCCINATE XL 25 MG TABLET PO SCH (08:55)
[2021-11-22] MEDS: DULoxetine 30 MG CAPSULE PO SCH (08:55)
[2021-11-22] MEDS: CLORAZEPATE 3.75 MG TABLET PO SCH (08:55)
[2021-11-22] MEDS: FUROSEMIDE 20 MG TABLET PO SCH (08:55)
[2021-11-22] MEDS: DOCUSATE SODIUM 100 MG CAPSULE PO SCH (08:55)
[2021-11-22] MEDS: APIXABAN 2.5 MG TABLET PO SCH (08:55)
[2021-11-22] MEDS: MAGNESIUM CHLORIDE 64 MG TABLET PO SCH (08:55)
[2021-11-22] MEDS: POLYETHYLENE GLYCOL POWDER 17 GM PACK PO SCH (08:56)
[2021-11-22] MEDS: LIDOCAINE 5% PATCH TRANSDERM SCH (08:58)
[2021-11-22] MEDS: FLUTICASONE/SALMETEROL 250-50 DISKUS 14 DOSE INH SCH (10:53)
[2021-11-22 12:07] VITALS: BP 138/82
== END 2021-11-22 13:35 | disposition home or self-care (01) | DRG 190 ==
LOC: EDBD → EDUNIT# → N.ED 22:31 → N.EDINP 22:31 → N.5E 11-20 00:32
PROVIDERS: ADMIT Family Medicine; ATTEND Family Medicine